=== PATIENT | female | born 1960 | race Caucasian/White ===

== ENCOUNTER 2016-01-02 08:51 | Outpatient (RCR) | payer MEDICARE ==
[~2016-01-02 08:51] MED LIST: ACET325T38 PO; ACHD5005 PO; ALDACTONE25 MG PO; AROMASIN; AROMASIN PO; ASP325T PO; ASPI-875 PO; ATR20T PO; ATRV10T PO; BIRTH CONTROL MED; CALC-80 PO; CARV12.52; CARV12.53 PO; CEFU500T PO; CHOL200025 PO; CLD600T PO; CLOP75TA PO; CRV25T PO; EXEM25TA4 PO; FRSM40T; FRSM40T PO; FURO40TA4 PO; HYDR-3583 PO; LASIX; LISI10TA2 PO; MULT-241 PO; MULT-608 PO; NITR0.3T6 SL; NTR.4SL SL; OMEP20CA12 PO; OXYC-309 PO; RECLIPSEN; RMP5C PO; SPIRONOLACTONE; TAMO20TA2 PO; VNL75CCR PO; VNL75T PO
[2016-01-02 09:02] LABS: BASOPHILS # (AUTO) 0.1 10^3/uL (0.0-0.1); BASOPHILS % (AUTO) 1 % (0-10); EOSINOPHILS # (AUTO) 0.2 10^3/uL (0.0-0.3); EOSINOPHILS % (AUTO) 4 % (0-10); LYMPHOCYTES # (AUTO) 1.6 X 10^3 (1.0-4.0); LYMPHOCYTES % (AUTO) 27 % (12-44); MEAN CORPUSCULAR HEMOGLOBIN 32 PG (25-34); MEAN CORPUSCULAR HGB CONC 34 G/DL (32-36); MEAN CORPUSCULAR VOLUME 96 FL (80-99); MEAN PLATELET VOLUME 10.6 FL (7.4-10.4); MONOCYTES # (AUTO) 0.5 X 10^3 (0.0-1.0); MONOCYTES % (AUTO) 9 % (0-12); NEUTROPHILS # (AUTO) 3.4 X 10^3 (1.8-7.8); NEUTROPHILS % (AUTO) 59 % (42-75); PLATELET COUNT 199 10^3/uL (130-400); RED BLOOD COUNT 4.02 10^6/uL (4.35-5.85); RED CELL DISTRIBUTION WIDTH 11.9 % (10.0-14.5); WHITE BLOOD COUNT 5.8 10^3/uL (4.3-11.0)
[2016-01-02 09:26] LABS: ALANINE AMINOTRANSFERASE 28 U/L (0-55); ALBUMIN 4.7 G/DL (3.2-4.5); ANION GAP 8 MMOL/L (5-14); ASPARTATE AMINO TRANSFERASE 26 U/L (5-34); BILIRUBIN,TOTAL 0.6 MG/DL (0.1-1.0); BLOOD UREA NITROGEN 23 MG/DL (7-18); BUN/CREATININE RATIO 29; CALCIUM 10.3 MG/DL (8.5-10.1); CARBON DIOXIDE 30 MMOL/L (21-32); CHLORIDE 101 MMOL/L (98-107); CREATININE SERUM 0.79 MG/DL (0.60-1.30); GFR ESTIMATED > 60; GLUCOSE 103 MG/DL (70-105); POTASSIUM 4.5 MMOL/L (3.6-5.0); SODIUM 139 MMOL/L (135-145); TOTAL PROTEIN 7.4 G/DL (6.4-8.2)
== END 2016-04-01 | disposition home or self-care (01) ==
LOC: ONC 08:51
PROVIDERS: ATTEND Internal Medicine Hematology & Oncology
DX: Z08 Encounter for follow-up examination after completed treatment for malignant neoplasm (principal); Z85.3 Personal history of malignant neoplasm of breast; Z85.830 Personal history of malignant neoplasm of bone; I42.9 Cardiomyopathy, unspecified; I25.10 Atherosclerotic heart disease of native coronary artery without angina pectoris; Z90.11 Acquired absence of right breast and nipple; Z90.710 Acquired absence of both cervix and uterus; Z98.84 Bariatric surgery status; Z92.21 Personal history of antineoplastic chemotherapy
CPT/HCPCS: 36415; 80053; 85025; 99213

== ENCOUNTER → 2016-07-24 | Outpatient (CLI) | payer MEDICARE ==
[~2016-07-24] MED LIST changes: +REGADENOSON 0.4 MG/5 ML SYR (LEXISCAN) IV ONE
[2016-07-24] MEDS: CATHETER FLUSH 10 ML SYR IV PRN ×2 (12:04→13:08)
[2016-07-24 13:06] VITALS: BP 141/68
--- NOTE | 2016-07-26 09:22 | STRESS TEST ---
DATE OF SERVICE: 07/24/2016 RESTING AND POST REGADENOSON TECHNETIUM 99M TETROFOSMIN SPECT CT IMAGING ORDERING PHYSICIAN: Dr. Gerardo. PRIMARY PHYSICIAN: Dr. Wu. CLINICAL DIAGNOSES: Coronary artery disease, nonischemic cardiomyopathy. Baseline images were carried out after injection of 10.35 mCi of technetium-99M tetrofosmin. This was followed by 0.4 mg regadenoson and 30.1 mCi of technetium-99M tetrofosmin for stress imaging. The electrocardiogram showed sinus rhythm with left bundle branch block and isolated premature ventricular contractions. The electrocardiogram did not change significantly with the regadenoson infusion. Review of images at rest and following stress indicates a somewhat patchy tracer uptake. However, there is no distinct evidence of ischemia or infarction. Gated images show global hypokinesis of the left ventricle and left ventricular ejection fraction of 35%. Left ventricular end-diastolic volume is 99 mL. CONCLUSIONS: 1. No evidence of significant myocardial ischemia or infarction on this study. 2. Global hypokinesis of the left ventricle with a calculated left ventricular ejection fraction of 35%. Job ID: [id number] DocumentID: [id number] Dictated Date: 07/25/2016 12:37:22 Technical Services Assistant Date: 07/25/2016 13:55:38 Dictated By: MELISSA GERARDO MD, MA, FACP, FACC,
== END ==
LOC: CARD 11:08
PROVIDERS: ATTEND Internal Medicine Cardiovascular Disease
DX: I25.10 Atherosclerotic heart disease of native coronary artery without angina pectoris (principal); I42.0 Dilated cardiomyopathy; E78.4 Other hyperlipidemia
CPT/HCPCS: 78452; 93017

== ENCOUNTER 2017-01-24 09:53 | Outpatient (RCR) | payer MEDICARE ==
[~2017-01-24 09:53] MED LIST changes: -REGADENOSON 0.4 MG/5 ML SYR (LEXISCAN) IV ONE
[2017-01-24 10:09] LABS: BASOPHILS # (AUTO) 0.1 10^3/uL (0.0-0.1); BASOPHILS % (AUTO) 1 % (0-10); EOSINOPHILS # (AUTO) 0.3 10^3/uL (0.0-0.3); EOSINOPHILS % (AUTO) 4 % (0-10); HEMATOCRIT 37 % (35-52); HEMOGLOBIN 12.8 G/DL (11.5-16.0); LYMPHOCYTES # (AUTO) 1.8 X 10^3 (1.0-4.0); LYMPHOCYTES % (AUTO) 26 % (12-44); MEAN CORPUSCULAR HEMOGLOBIN 33 PG (25-34); MEAN CORPUSCULAR HGB CONC 34 G/DL (32-36); MEAN CORPUSCULAR VOLUME 96 FL (80-99); MEAN PLATELET VOLUME 10.7 FL (7.4-10.4); MONOCYTES # (AUTO) 0.6 X 10^3 (0.0-1.0); MONOCYTES % (AUTO) 9 % (0-12); NEUTROPHILS # (AUTO) 4.2 X 10^3 (1.8-7.8); NEUTROPHILS % (AUTO) 60 % (42-75); PLATELET COUNT 175 10^3/uL (130-400); RED BLOOD COUNT 3.86 10^6/uL (4.35-5.85); RED CELL DISTRIBUTION WIDTH 11.7 % (10.0-14.5)
[2017-01-24 10:29] LABS: ALANINE AMINOTRANSFERASE 28 U/L (0-55); ALBUMIN 4.4 GM/DL (3.2-4.5); ALKALINE PHOSPHATASE 61 U/L (40-136); BILIRUBIN,TOTAL 0.4 MG/DL (0.1-1.0); BUN/CREATININE RATIO 41; CALCIUM 9.7 MG/DL (8.5-10.1); CARBON DIOXIDE 29 MMOL/L (21-32); CHLORIDE 98 MMOL/L (98-107); CREATININE SERUM 0.76 MG/DL (0.60-1.30); GFR ESTIMATED > 60; GLUCOSE 98 MG/DL (70-105); POTASSIUM 4.4 MMOL/L (3.6-5.0); SODIUM 136 MMOL/L (135-145); TOTAL PROTEIN 6.9 GM/DL (6.4-8.2)
[2017-04-25] MEDS ORDERED: HYDR-757 PO (19:19)
== END 2017-04-24 | disposition home or self-care (01) ==
LOC: ONC 09:53
PROVIDERS: ATTEND Internal Medicine Hematology & Oncology
DX: Z08 Encounter for follow-up examination after completed treatment for malignant neoplasm (principal); Z85.3 Personal history of malignant neoplasm of breast; Z85.830 Personal history of malignant neoplasm of bone; I42.9 Cardiomyopathy, unspecified; I25.10 Atherosclerotic heart disease of native coronary artery without angina pectoris; E04.2 Nontoxic multinodular goiter; Z90.11 Acquired absence of right breast and nipple; Z90.710 Acquired absence of both cervix and uterus; Z98.84 Bariatric surgery status; Z92.21 Personal history of antineoplastic chemotherapy; Z79.82 Long term (current) use of aspirin; Z79.899 Other long term (current) drug therapy
CPT/HCPCS: 36415; 80053; 85025; 99213

== ENCOUNTER → 2017-01-25 | Outpatient (CLI) | payer MEDICARE ==
--- NOTE | 2017-01-25 12:28 | Diagnostic Imaging Report ---
PROCEDURE: US Thyroid. TECHNIQUE: Multiple real-time grayscale images were obtained of the thyroid in various projections. INDICATION: Followup of thyroid nodule. COMPARISON: 01/31/2016. FINDINGS: The right lobe measures 5.6 x 2.2 x 1.9 cm. There is a solid heterogeneous nodule in the midportion measuring 1.7 x 1.0 x 1.3 cm. There is a second solid heterogeneous nodule in the inferior lobe measuring 1.4 x 1 x 1.3 cm. The left lobe measures 4.4 x 1.0 x 1.4 cm. The largest nodule is in the midportion measuring 7 x 4 x 6 mm. Smaller nodule inferiorly is not demonstrated today. There is normal blood flow bilaterally. IMPRESSION: Multinodular thyroid with the largest dominant nodule midportion right lobe stable. The next largest nodule in the inferior portion of the right lobe has increased slightly in size from previous exam. Dictated by: Dictated on workstation # [id number]
== END ==
LOC: RAD 10:40
PROVIDERS: ATTEND Otolaryngology Otolaryngology/Facial Plastic Surgery
DX: E04.2 Nontoxic multinodular goiter (principal)
CPT/HCPCS: 76536

== ENCOUNTER → 2017-01-30 | Outpatient (CLI) | payer MEDICARE | LOC: CARD 09:14 | PROVIDERS: ATTEND Internal Medicine Cardiovascular Disease | DX: I25.10 Atherosclerotic heart disease of native coronary artery without angina pectoris (principal); I50.32 Chronic diastolic (congestive) heart failure; I42.0 Dilated cardiomyopathy; I25.5 Ischemic cardiomyopathy; E78.4 Other hyperlipidemia | CPT/HCPCS: 93306 ==

== ENCOUNTER 2017-04-25 17:53 | Emergency (ER) | payer MEDICARE ==
[~2017-04-25] VITALS: Ht 162.6 cm; Wt 78.5 kg
--- OUTSIDE RECORDS SUMMARY | 2017-04-25 17:59 | XMS REPORT | Continuity of Care Document ---
Author Author [facility] Organization [facility] Address Unknown Phone Unavailable Allergies Active Description Code Type Severity Reaction Onset Reported/Identified Relationship to Patient Clinical Status Yes No Known Drug Allergies [id number] Drug Allergy Unknown N/A 02/28/2007 Yes adhesive [id number] Drug Allergy Moderate RASH 05/27/2014 Medications There is no data. Problems Date Dx Coded Attending Type Code Diagnosis Diagnosed By 10/20/2008 Ot 272.4 10/20/2008 Ot 396.3 10/20/2008 Ot 401.9 10/20/2008 Ot 410.71 10/20/2008 Ot 413.9 10/20/2008 Ot 414.01 10/20/2008 Ot 425.9 10/20/2008 Ot 426.3 10/20/2008 Ot 428.0 10/20/2008 Ot 428.22 10/20/2008 Ot 909.2 10/20/2008 Ot E879.2 10/20/2008 Ot V10.81 10/20/2008 Ot V45.02 10/20/2008 Ot V87.41 09/06/2009 Ot 174.9 09/24/2009 Ot 174.9 09/24/2009 Ot 272.4 09/24/2009 Ot 396.3 09/24/2009 Ot 412 09/24/2009 Ot 425.4 09/24/2009 Ot 428.22 09/24/2009 Ot V10.81 09/24/2009 Ot V45.02 09/24/2009 Ot V45.82 11/14/2009 Ot 174.9 11/14/2009 Ot V45.71 11/14/2009 Ot V57.21 12/15/2009 Ot 174.9 12/15/2009 Ot 493.90 12/15/2009 Ot 621.8 12/15/2009 Ot V12.59 12/15/2009 Ot V45.02 12/15/2009 Ot V45.71 12/15/2009 Ot V86.0 01/31/2010 Ot 174.9 01/31/2010 Ot 414.00 01/31/2010 Ot 425.4 01/31/2010 Ot 733.90 01/31/2010 Ot V10.81 01/31/2010 Ot V15.3 01/31/2010 Ot V45.71 01/31/2010 Ot V58.69 01/31/2010 Ot V86.0 01/31/2010 Ot V87.41 05/03/2010 Ot 174.9 MALIGN NEOPL BREAST NOS 05/03/2010 Ot 414.00 CORON ATHEROSCLER NOS TYPE VESSEL, NATIV 05/03/2010 Ot 425.4 PRIM CARDIOMYOPATHY NEC 05/03/2010 Ot 733.90 BONE CARTILAGE DIS NOS 05/03/2010 Ot V10.81 HX OF BONE MALIGNANCY 05/03/2010 Ot V15.3 HX OF IRRADIATION 05/03/2010 Ot V45.71 ACQUIRED ABSENCE OF BREAST AND NIPPLE 05/03/2010 Ot V58.69 OTH MED,LT, CURRENT USE 05/03/2010 Ot V86.0 ESTROGEN RECEPTOR POSITIVE STATUS [ER+] 05/03/2010 Ot V87.41 PERSONAL HISTORY OF ANTINEOPLASTIC CHEMO 07/18/2010 Ot 272.4 HYPERLIPIDEMIA NEC/NOS 07/18/2010 Ot 412 OLD MYOCARDIAL INFARCT 07/18/2010 Ot 414.01 CORONARY ATHEROSCLEROSIS OF [place] CORON 07/18/2010 Ot 425.4 PRIM CARDIOMYOPATHY NEC 07/18/2010 Ot 789.06 ABDOMINAL PAIN, EPIGASTRIC 07/18/2010 Ot V10.81 HX OF BONE MALIGNANCY 07/18/2010 Ot V45.02 AUTO IMPLANTABLE CARDIAC DEFIBRILLATOR I 07/18/2010 Ot V45.82 PERCUTANEOUS TRANSLUM CORON ANGIOPLASTY 07/18/2010 Ot V58.63 LONG-TERM( CURRENT)USE OF ANTIPLATELET/AN 07/18/2010 Ot V58.66 LONG-TERM ( CURRENT) USE OF ASPIRIN 07/18/2010 Ot V58.69 OTH MED,LT, CURRENT USE 01/19/2014 Ot 786.50 01/19/2014 Ot V45.02 01/19/2014 Ot 786.50 01/19/2014 Ot V76.12 01/19/2014 Ot 413.9 01/19/2014 Ot 414.01 01/19/2014 Ot 425.4 01/19/2014 Ot V58.66 01/19/2014 Ot V58.69 01/19/2014 Ot V72.81 01/19/2014 Ot V72.83 01/19/2014 Ot V74.8 01/19/2014 Ot 611.72 01/19/2014 Ot 611.72 01/19/2014 Ot V72.63 01/19/2014 Ot V72.81 01/19/2014 Ot V74.8 01/19/2014 Ot 174.9 01/19/2014 Ot 272.4 01/19/2014 Ot 401.9 01/19/2014 Ot 412 01/19/2014 Ot 414.00 01/19/2014 Ot 425.4 01/19/2014 Ot V10.81 01/19/2014 Ot V15.3 01/19/2014 Ot V16.0 01/19/2014 Ot V16.3 01/19/2014 Ot V16.41 01/19/2014 Ot V16.42 01/19/2014 Ot V45.02 01/19/2014 Ot V45.82 01/19/2014 Ot V58.63 01/19/2014 Ot V58.66 01/19/2014 Ot V58.69 01/19/2014 Ot V87.41 01/19/2014 Ot 174.9 01/19/2014 Ot 174.9 01/19/2014 Ot V72.63 01/19/2014 Ot V74.8 01/19/2014 Ot 786.2 01/19/2014 Ot 174.9 01/19/2014 Ot 414.00 01/19/2014 Ot 425.4 01/19/2014 Ot V10.81 01/19/2014 Ot V15.3 01/19/2014 Ot V45.71 01/19/2014 Ot V58.63 01/19/2014 Ot V58.66 01/19/2014 Ot V58.69 01/19/2014 Ot V87.41 01/19/2014 Ot 627.2 01/19/2014 Ot 174.9 01/19/2014 Ot V72.63 01/19/2014 Ot V74.8 01/19/2014 Ot V49.81 01/19/2014 Ot V82.81 01/19/2014 Ot 174.9 01/19/2014 Ot 414.00 01/19/2014 Ot 425.4 01/19/2014 Ot 733.90 01/19/2014 Ot V10.81 01/19/2014 Ot V15.3 01/19/2014 Ot V45.71 01/19/2014 Ot V58.69 01/19/2014 Ot V86.0 01/19/2014 Ot V87.41 01/19/2014 Ot 272.4 01/19/2014 Ot 413.9 01/19/2014 Ot 414.00 01/19/2014 Ot 425.4 01/19/2014 Ot 780.79 01/19/2014 Ot 786.05 01/19/2014 Ot V45.71 01/19/2014 Ot V58.63 01/19/2014 Ot V58.66 01/19/2014 Ot V58.69 01/19/2014 Ot V72.63 01/19/2014 Ot V72.81 01/19/2014 KASHIF WALKER N Ot 174.9 01/19/2014 KASHIF WALKER N Ot V07.4 01/19/2014 KASHIF WALKER N Ot V49.81 01/19/2014 KASHIF WALKER N Ot V82.81 01/19/2014 IRINA STINSON FACC, ALI FACP CCDS Ot 272.4 01/19/2014 IRINA STINSON FACC, ALI FACP CCDS Ot 278.00 01/19/2014 IRINA STINSON FACC, ALI FACP CCDS Ot 414.00 01/19/2014 IRINA STINSON FACC, ALI FACP CCDS Ot 425.4 01/19/2014 IRINA STINSON FACC, ALI FACP CCDS Ot 428.0 01/19/2014 BEATRICE KIM PASTE UP COPY CAMERA OPERATOR Ot 174.9 01/19/2014 BEATRICE KIM PASTE UP COPY CAMERA OPERATOR Ot 414.00 01/19/2014 BEATRICE KIM PASTE UP COPY CAMERA OPERATOR Ot 425.4 01/19/2014 BEATRICE KIM PASTE UP COPY CAMERA OPERATOR Ot V10.81 01/19/2014 BEATRICE KIM PASTE UP COPY CAMERA OPERATOR Ot V15.3 01/19/2014 BEATRICE KIM PASTE UP COPY CAMERA OPERATOR Ot V45.71 01/19/2014 BEATRICE KIM PASTE UP COPY CAMERA OPERATOR Ot V58.69 01/19/2014 BEATRICE KIM PASTE UP COPY CAMERA OPERATOR Ot V86.0 01/19/2014 BEATRICE KIM PASTE UP COPY CAMERA OPERATOR Ot V87.41 01/19/2014 BEATRICE KIM PASTE UP COPY CAMERA OPERATOR Ot V88.01 01/19/2014 BERNY STINSON, GILBERTO P Ot 241.0 01/19/2014 BERNY STINSON, GILBERTO P Ot 241.0 01/19/2014 BERNY STINSON, GILBERTO P Ot 241.1 01/19/2014 KIMBEATRICE Mena PASTE UP COPY CAMERA OPERATOR Ot 174.9 01/19/2014 JUDYBEATRICE S PASTE UP COPY CAMERA OPERATOR Ot 414.00 01/19/2014 JUDY BEATRICE S PASTE UP COPY CAMERA OPERATOR Ot 425.4 01/19/2014 JUDY BEATRICE S PASTE UP COPY CAMERA OPERATOR Ot 625.0 01/19/2014 JUDY BEATRICE S PASTE UP COPY CAMERA OPERATOR Ot V10.81 01/19/2014 JUDY BEATRICE S PASTE UP COPY CAMERA OPERATOR Ot V15.3 01/19/2014 JUDY BEATRICE S PASTE UP COPY CAMERA OPERATOR Ot V45.71 01/19/2014 JUDY BEATRICE S PASTE UP COPY CAMERA OPERATOR Ot V58.69 01/19/2014 JUDY BEATRICE S PASTE UP COPY CAMERA OPERATOR Ot V86.0 01/19/2014 JUDY BEATRICE S PASTE UP COPY CAMERA OPERATOR Ot V87.41 01/19/2014 JUDY BEATRICE S PASTE UP COPY CAMERA OPERATOR Ot V88.01 01/19/2014 MELISSA AREVALO MD, FACCP CCDS Ot 272.4 HYPERLIPIDEMIA NEC/NOS 01/19/2014 MELISSA AREVALO MD, FACC FACP CCDS Ot 413.9 ANGINA PECTORIS NEC/NOS 01/19/2014 IRINA STINSON FACC, MELISSA FACP CCDS Ot 414.01 CORONARY ATHEROSCLEROSIS OF [place] CORON 01/19/2014 MELISSA AREVALO MD, FACCP CCDS Ot 425.4 PRIM CARDIOMYOPATHY NEC 01/19/2014 MELISSA AREVALO MD, FACC FACP CCDS Ot 780.79 OTH MALAISE FATIGUE 01/19/2014 MELISSA AREVALO MD, FACC FACP CCDS Ot V45.82 PERCUTANEOUS TRANSLUM CORON ANGIOPLASTY 01/19/2014 MELISSA AREVALO MD, FACC FACP CCDS Ot V58.63 LONG-TERM(CURRENT)USE OF ANTIPLATELET/AN 01/19/2014 MELISSA AREVALO MD, FACC FACP CCDS Ot V58.66 LONG-TERM (CURRENT) USE OF ASPIRIN 01/19/2014 MELISSA AREVALO MD, FACCP CCDS Ot V58.69 OTH MED,LT,CURRENT USE 01/19/2014 MELISSA AREVALO MD, FACC FACP CCDS Ot V87.41 PERSONAL HISTORY OF ANTINEOPLASTIC CHEMO 03/03/2014 BEATRICE KIM PASTE UP COPY CAMERA OPERATOR Ot 174.9 03/03/2014 BEATRICE KIM PASTE UP COPY CAMERA OPERATOR Ot 414.00 03/03/2014 BEATRICE KIM S PASTE UP COPY CAMERA OPERATOR Ot 425.4 03/03/2014 BEATRICE KIM S PASTE UP COPY CAMERA OPERATOR Ot 625.0 03/03/2014 BEATRICE KIM PASTE UP COPY CAMERA OPERATOR Ot V10.81 03/03/2014 KIMBEATRICE Mena S PASTE UP COPY CAMERA OPERATOR Ot V15.3 03/03/2014 BEATRICE KIM S PASTE UP COPY CAMERA OPERATOR Ot V45.71 03/03/2014 BEATRICE KIM PASTE UP COPY CAMERA OPERATOR Ot V58.69 03/03/2014 BEATRICE KIM PASTE UP COPY CAMERA OPERATOR Ot V86.0 03/03/2014 BEATRICE KIM S PASTE UP COPY CAMERA OPERATOR Ot V87.41 03/03/2014 BEATRICE KIM S PASTE UP COPY CAMERA OPERATOR Ot V88.01 03/04/2014 ROHITH STINSON, KELLY Ma Ot 174.9 03/04/2014 ROHITH STINSON, KELLY Ma Ot V58.69 03/22/2014 BEATRICE KIM PASTE UP COPY CAMERA OPERATOR Ot 174.9 03/22/2014 BEATRICE KIM PASTE UP COPY CAMERA OPERATOR Ot 414.00 03/22/2014 BEATRICE KIM PASTE UP COPY CAMERA OPERATOR Ot 425.4 03/22/2014 BEATRICE KIM S PASTE UP COPY CAMERA OPERATOR Ot 625.0 03/22/2014 BEATRICE KIM PASTE UP COPY CAMERA OPERATOR Ot V10.81 03/22/2014 BEATRICE KIM PASTE UP COPY CAMERA OPERATOR Ot V15.3 03/22/2014 BEATRICE KIM PASTE UP COPY CAMERA OPERATOR Ot V45.71 03/22/2014 KIMBEATRICE Mena S PASTE UP COPY CAMERA OPERATOR Ot V58.69 03/22/2014 BEATRICE KIM PASTE UP COPY CAMERA OPERATOR Ot V86.0 03/22/2014 KIMBEATRICE Mena S PASTE UP COPY CAMERA OPERATOR Ot V87.41 03/22/2014 KIMBEATRICE Mena S PASTE UP COPY CAMERA OPERATOR Ot V88.01 05/21/2014 Ot 530.81 05/28/2014 CAREN STINSON, LIZZIE Ot 250.00 05/28/2014 CAREN STINSON, LIZZIE Ot 272.4 05/28/2014 CAREN STINSON, LIZZIE Ot 278.01 05/28/2014 CAREN STINSON, LIZZIE Ot 401.9 05/28/2014 CAREN STINSON, LIZZIE Ot 412 05/28/2014 CAREN STINSON, LIZZIE Ot 530.11 05/28/2014 CAREN STINSON, LIZZIE Ot V85.36 05/28/2014 CAREN STINSON, LIZZIE Ot 250.00 05/28/2014 CAREN STINSON, LIZZIE Ot 272.4 05/28/2014 CAREN STINSON, SHARMILAKI Ot 278.01 05/28/2014 CAREN STINSON, GERSONAAKI Ot 401.9 05/28/2014 CAREN STINSON, SHARMILAKI Ot 412 05/28/2014 CAREN STINSON, LIZZIE Ot 530.11 05/28/2014 CAREN STINSON, LIZZIE Ot V85.36 05/28/2014 Ot 530.81 05/28/2014 CAREN STINSON, LIZZIE Ot 250.00 DIAB MARK WO COMPL, TYPE II OR UNSPEC TY 05/28/2014 CAREN STINSON, LIZZIE Ot 272.4 HYPERLIPIDEMIA NEC/NOS 05/28/2014 CAREN STINSON, LIZZIE Ot 278.01 MORBID OBESITY 05/28/2014 CAERN STINSON, LIZZIE Ot 401.9 HYPERTENSION NOS 05/28/2014 CAREN STINSON, LIZZIE Ot 412 05/28/2014 CAREN STINSON, LIZZIE Ot 414.01 CORONARY ATHEROSCLEROSIS OF [place] CORON 05/28/2014 CAREN STINSON, LIZZIE Ot 530.11 REFLUX ESOPHAGITIS 05/28/2014 CAREN STINSON, LIZZIE Ot V45.02 AUTO IMPLANTABLE CARDIAC DEFIBRILLATOR I 05/28/2014 CAREN STINSON, LIZZIE Ot V45.82 PERCUTANEOUS TRANSLUM CORON ANGIOPLASTY 05/28/2014 CAREN STINSON, LIZZIE Ot V85.36 BODY MASS INDEX 36.0-36.9, ADULT 05/31/2014 CAREN STINSON, LIZZIE Ot 250.00 05/31/2014 CAREN STINSON, LIZZIE Ot 272.4 05/31/2014 CAREN STINSON, LIZZIE Ot 278.01 05/31/2014 CAREN STINSON, LIZZIE Ot 401.9 05/31/2014 CAREN STINSON, LIZZIE Ot 414.01 05/31/2014 CAREN STINSON, LIZZIE Ot 530.11 05/31/2014 CAREN STINSON, LIZZIE Ot V45.02 05/31/2014 CAREN STINSON, TAKAAKI Ot V45.82 05/31/2014 CAREN STINSON, TAKAAKI Ot V85.36 05/31/2014 CAREN STINSON, TAKAAKI Ot 250.00 05/31/2014 CAREN STINSON, TAKAAKI Ot 272.4 05/31/2014 CAREN STINSON, TAKAAKI Ot 278.01 05/31/2014 CAREN STINSON, TAKAAKI Ot 401.9 05/31/2014 CAREN STINSON, TAKAAKI Ot 414.01 05/31/2014 CAREN STINSON, TAKAAKI Ot 530.11 05/31/2014 CAREN STINSON, TAKAAKI Ot V45.02 05/31/2014 CAREN STINSON, TAKAAKI Ot V45.82 05/31/2014 CAREN STINSON, TAKAAKI Ot V85.36 06/08/2014 CAREN STINSON, TAKAAKI Ot 250.00 06/08/2014 CAREN STINSON, TAKAAKI Ot 272.4 06/08/2014 CAREN STINSON, TAKAAKI Ot 278.01 06/08/2014 CAREN STINSON, TAKAAKI Ot 401.9 06/08/2014 CAREN STINSON, TAKAAKI Ot 414.01 06/08/2014 CAREN STINSON, TAKAAKI Ot 530.11 06/08/2014 CAREN STINSON, TAKAAKI Ot V45.02 06/08/2014 CAREN STINSON, TAKAAKI Ot V45.82 06/08/2014 CAREN STINSON, TAKAAKI Ot V85.36 06/21/2014 CAREN STINSON, TAKAAKI Ot 278.01 06/21/2014 CAREN STINSON, TAKAAKI Ot V72.63 06/21/2014 CAREN STINSON, TAKAAKI Ot V72.83 06/21/2014 CAREN STINSON, TAKAAKI Ot V74.8 07/16/2014 CAREN STINSON, TAKAAKI Ot 278.01 07/16/2014 CAREN STINSON, TAKAAKI Ot V72.63 07/16/2014 CAREN STINSON, TAKAAKI Ot V72.83 07/16/2014 CAREN STINSON, TAKAAKI Ot V74.8 07/24/2014 NITIN MICHAEL SPIRITUAL COUNSELOR Ot 241.1 08/04/2014 BEATRICE KIM PASTE UP COPY CAMERA OPERATOR Ot 174.9 08/04/2014 BEATRICE KIM PASTE UP COPY CAMERA OPERATOR Ot 241.1 08/04/2014 KIM, [facility] S PASTE UP COPY CAMERA OPERATOR Ot 250.00 08/04/2014 KIM, [facility] S PASTE UP COPY CAMERA OPERATOR Ot 272.4 08/04/[address] [facility] S PASTE UP COPY CAMERA OPERATOR Ot 401.9 08/04/[address] [facility] S PASTE UP COPY CAMERA OPERATOR Ot 414.01 08/04/[address] [facility] S PASTE UP COPY CAMERA OPERATOR Ot 425.4 08/04/[address] [facility] S PASTE UP COPY CAMERA OPERATOR Ot V10.81 08/04/[address] [facility] S PASTE UP COPY CAMERA OPERATOR Ot V15.3 08/04/2014 KIM, [facility] S PASTE UP COPY CAMERA OPERATOR Ot V45.02 08/04/[address] [facility] S PASTE UP COPY CAMERA OPERATOR Ot V45.71 08/04/[address] [facility] S PASTE UP COPY CAMERA OPERATOR Ot V45.82 08/04/[address] [facility] S PASTE UP COPY CAMERA OPERATOR Ot V58.69 08/04/2014 KIM, [facility] S PASTE UP COPY CAMERA OPERATOR Ot V86.0 08/04/[address] [facility] S PASTE UP COPY CAMERA OPERATOR Ot V87.41 08/04/[address] [facility] S PASTE UP COPY CAMERA OPERATOR Ot V88.01 08/04/2014 KIM, [facility] S PASTE UP COPY CAMERA OPERATOR Ot 174.9 08/04/2014 KIM, [facility] S PASTE UP COPY CAMERA OPERATOR Ot 241.1 08/04/2014 KIM, [facility] S PASTE UP COPY CAMERA OPERATOR Ot 250.00 08/04/[address] [facility] S PASTE UP COPY CAMERA OPERATOR Ot 272.4 08/04/2014 KIM, [facility] S PASTE UP COPY CAMERA OPERATOR Ot 401.9 08/04/2014 KIM, [facility] S PASTE UP COPY CAMERA OPERATOR Ot 414.01 08/04/2014 KIM, [facility] S PASTE UP COPY CAMERA OPERATOR Ot 425.4 08/04/[address] [facility] S PASTE UP COPY CAMERA OPERATOR Ot V10.81 08/04/[address] [facility] S PASTE UP COPY CAMERA OPERATOR Ot V15.3 08/04/2014 KIM, [facility] S PASTE UP COPY CAMERA OPERATOR Ot V45.02 08/04/[address] [facility] S PASTE UP COPY CAMERA OPERATOR Ot V45.71 08/04/[address] [facility] S PASTE UP COPY CAMERA OPERATOR Ot V45.82 08/04/2014 KIM, [facility] S PASTE UP COPY CAMERA OPERATOR Ot V58.69 08/04/2014 KIM, [facility] S PASTE UP COPY CAMERA OPERATOR Ot V86.0 08/04/2014 KIMBEATRICE Mena S PASTE UP COPY CAMERA OPERATOR Ot V87.41 08/04/2014 KIMBEATRICE Mena S PASTE UP COPY CAMERA OPERATOR Ot V88.01 08/13/2014 NITIN MICHAEL SPIRITUAL COUNSELOR Ot 241.1 08/18/2014 KIMBEATRICE Mena S PASTE UP COPY CAMERA OPERATOR Ot 174.9 08/18/2014 KIM, HIL S PASTE UP COPY CAMERA OPERATOR Ot 414.00 08/18/2014 KIMMARI S PASTE UP COPY CAMERA OPERATOR Ot 425.4 08/18/2014 KIM, HIL S PASTE UP COPY CAMERA OPERATOR Ot V10.81 08/18/2014 KIM, HIL S PASTE UP COPY CAMERA OPERATOR Ot V15.3 08/18/2014 KIMMARI S PASTE UP COPY CAMERA OPERATOR Ot V45.71 08/18/2014 KIMMARI S PASTE UP COPY CAMERA OPERATOR Ot V58.69 08/18/2014 KIM, HIL S PASTE UP COPY CAMERA OPERATOR Ot V86.0 08/18/2014 KIMBEATRICE S PASTE UP COPY CAMERA OPERATOR Ot V87.41 08/18/2014 KIMMARI S PASTE UP COPY CAMERA OPERATOR Ot V88.01 08/20/2014 KIM, HIL S PASTE UP COPY CAMERA OPERATOR Ot 174.9 08/20/2014 KIM, [facility] S PASTE UP COPY CAMERA OPERATOR Ot 414.00 08/20/2014 KIM, HIL S PASTE UP COPY CAMERA OPERATOR Ot 425.4 08/20/2014 KIM, HIL S PASTE UP COPY CAMERA OPERATOR Ot V10.81 08/20/2014 KIM, HIL S PASTE UP COPY CAMERA OPERATOR Ot V15.3 08/20/2014 KIM, HIL S PASTE UP COPY CAMERA OPERATOR Ot V45.71 08/20/2014 KIM, HIL S PASTE UP COPY CAMERA OPERATOR Ot V58.69 08/20/2014 KIM, [facility] S PASTE UP COPY CAMERA OPERATOR Ot V86.0 08/20/2014 KIM, [facility] S PASTE UP COPY CAMERA OPERATOR Ot V87.41 08/20/2014 KIM, [facility] S PASTE UP COPY CAMERA OPERATOR Ot V88.01 08/26/2014 KIM, [facility] S PASTE UP COPY CAMERA OPERATOR Ot 174.9 08/26/2014 KIMMARI S PASTE UP COPY CAMERA OPERATOR Ot 241.1 08/26/2014 KIMMARI S PASTE UP COPY CAMERA OPERATOR Ot 250.00 08/26/2014 KIMMARI S PASTE UP COPY CAMERA OPERATOR Ot 272.4 08/26/2014 KIM, MARI S PASTE UP COPY CAMERA OPERATOR Ot 401.9 08/26/2014 KIM, HILAH S PASTE UP COPY CAMERA OPERATOR Ot 414.01 08/26/2014 KIMBEATRICE Mena PASTE UP COPY CAMERA OPERATOR Ot 425.4 08/26/2014 KIMBEATRICE Mena PASTE UP COPY CAMERA OPERATOR Ot V10.81 08/26/2014 KIMBEATRICE Mena PASTE UP COPY CAMERA OPERATOR Ot V15.3 08/26/2014 KIMBEATRICE PASTE UP COPY CAMERA OPERATOR Ot V45.02 08/26/2014 KIMBEATRICE PASTE UP COPY CAMERA OPERATOR Ot V45.71 08/26/2014 KIMBEATRICE PASTE UP COPY CAMERA OPERATOR Ot V45.82 08/26/2014 KIMBEATRICE PASTE UP COPY CAMERA OPERATOR Ot V58.69 08/26/2014 KIMBEATRICE PASTE UP COPY CAMERA OPERATOR Ot V86.0 08/26/2014 KIMBEATRICE PASTE UP COPY CAMERA OPERATOR Ot V87.41 08/26/2014 KIMBEATRICE Mena PASTE UP COPY CAMERA OPERATOR Ot V88.01 10/05/2014 IRINA STINSON FAC, MELISSA RAPPP CCDS Ot 425.4 PRIM CARDIOMYOPATHY NEC 10/05/2014 IRINA STINSON FACC, MELISSA FACP CCDS Ot V53.32 FITTING ADJUST AUTOMAT IMPLANT CARDIAC 10/05/2014 IRINA STINSON FAC, MELISSA FACP CCDS Ot V58.69 OT MED,LT,CURRENT USE 03/23/2015 DENISE, KASHIF N Ot I25.10 03/23/2015 DENISE, KASHIF N Ot I42.9 03/23/2015 DENISE, KASHIF N Ot Z08 03/23/2015 DENISE, KASHIF N Ot Z85.3 03/23/2015 DENISE, BOBAN N Ot Z85.830 03/23/2015 DENISE, BOBAN N Ot Z90.11 03/23/2015 DENISE, BOBAN N Ot Z90.710 03/23/2015 DENISE, BOBAN N Ot Z92.21 03/23/2015 DENISE, BOBAN N Ot Z98.84 03/24/2015 DENISE, BOBAN N Ot I25.10 03/24/2015 DENISE, BOBAN N Ot I42.9 03/24/2015 DENISE, BOBAN N Ot Z08 03/24/2015 DENISE, BOBAN N Ot Z85.3 03/24/2015 DENISE, BOBAN N Ot Z85.830 03/24/2015 DENISE, BOBAN N Ot Z90.11 03/24/2015 KASHIF WALKER Ot Z90.710 03/24/2015 KASHIF WALKER Ot Z92.21 03/24/2015 KASHIF WALKER Ot Z98.84 04/27/2015 KASHIF WALKER Ot I25.10 ATHSCL HEART DISEASE OF [place] CORONARY 04/27/2015 KASHIF WALKER Ot I42.9 CARDIOMYOPATHY, UNSPECIFIED 04/27/2015 KASHIF WALKER Ot Z08 ENCNTR FOR FOLLOW-UP EXAM AFTER TRTMT FO 04/27/2015 KASHIF WALKER Ot Z85.3 PERSONAL HISTORY OF MALIGNANT NEOPLASM O 04/27/2015 KASHIF WALKER Ot Z85.830 PERSONAL HISTORY OF MALIGNANT NEOPLASM O 04/27/2015 KASHIF WALKER Ot Z90.11 ACQUIRED ABSENCE OF RIGHT BREAST AND NIP 04/27/2015 KASHIF WALKER Ot Z90.710 ACQUIRED ABSENCE OF BOTH CERVIX AND UTER 04/27/2015 KASHIF WALKER Ot Z92.21 PERSONAL HISTORY OF ANTINEOPLASTIC CHEMO 04/27/2015 KASHIF WALKER Ot Z98.84 BARIATRIC SURGERY STATUS 08/03/2015 Ot 174.9 MALIGN NEOPL BREAST NOS 08/03/2015 Ot 414.00 CORON ATHEROSCLER NOS TYPE VESSEL, NATIV 08/03/2015 Ot 425.4 PRIM CARDIOMYOPATHY NEC 08/03/2015 Ot 733.90 BONE CARTILAGE DIS NOS 08/03/2015 Ot V10.81 HX OF BONE MALIGNANCY 08/03/2015 Ot V15.3 HX OF IRRADIATION 08/03/2015 Ot V45.71 ACQUIRED ABSENCE OF BREAST AND NIPPLE 08/03/2015 Ot V58.69 OTH MED,LT, CURRENT USE 08/03/2015 Ot V86.0 ESTROGEN RECEPTOR POSITIVE STATUS [ER+] 08/03/2015 Ot V87.41 PERSONAL HISTORY OF ANTINEOPLASTIC CHEMO 08/03/2015 Ot 272.4 HYPERLIPIDEMIA NEC/NOS 08/03/2015 Ot 413.9 ANGINA PECTORIS NEC/NOS 08/03/2015 Ot 414.00 CORON ATHEROSCLER NOS TYPE VESSEL, NATIV 08/03/2015 Ot 425.4 PRIM CARDIOMYOPATHY NEC 08/03/2015 Ot 780.79 OTH MALAISE FATIGUE 08/03/2015 Ot 786.05 SHORTNESS OF BREATH 08/03/2015 Ot V45.71 ACQUIRED ABSENCE OF BREAST AND NIPPLE 08/03/2015 Ot V58.63 LONG-TERM( CURRENT)USE OF ANTIPLATELET/AN 08/03/2015 Ot V58.66 LONG-TERM ( CURRENT) USE OF ASPIRIN 08/03/2015 Ot V58.69 OTH MED,LT, CURRENT USE 08/03/2015 Ot V72.63 PRE- PROCEDURAL LABORATORY EXAMINATION 08/03/2015 Ot V72.81 EXAM-PRE- OPERATIVE CARDIOVASCULAR 08/03/2015 KASHIF WALKER Ot 174.9 MALIGN NEOPL BREAST NOS 08/03/2015 KASHIF WALKER Ot V07.4 HORMONE REPLACEMENT THERAPY (POSTMENOPAU 08/03/2015 KASHIF WALKER Ot V49.81 ASYMPT POSTMENOPAUSAL STATUS (AGE-RELATE 08/03/2015 KASHIF WALKER Ot V82.81 SCREENING FOR OSTEOPOROSIS 08/03/2015 IRINA STINSON FACC, MELISSA FACP CCDS Ot 272.4 HYPERLIPIDEMIA NEC/NOS 08/03/2015 IRINA STINSON FACC, ALI FACP CCDS Ot 278.00 OBESITY, NOS 08/03/2015 IRINA STINSNO FACC, ALI FACP CCDS Ot 414.00 CORON ATHEROSCLER NOS TYPE VESSEL, NATIV 08/03/2015 IRINA STINSON FACC, ALI FACP CCDS Ot 425.4 PRIM CARDIOMYOPATHY NEC 08/03/2015 IRINA STINSON FACC, ALI FACP CCDS Ot 428.0 CONGESTIVE HEART FAILURE NOS 08/03/2015 BEATRICE KIM PASTE UP COPY CAMERA OPERATOR Ot 174.9 MALIGN NEOPL BREAST NOS 08/03/2015 BEATRICE KIM PASTE UP COPY CAMERA OPERATOR Ot 414.00 CORON ATHEROSCLER NOS TYPE VESSEL, NATIV 08/03/2015 BEATRICE KIM PASTE UP COPY CAMERA OPERATOR Ot 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.4 PRIM CARDIOMYOPATHY NEC 08/03/2015 BEATRICE KIM PASTE UP COPY CAMERA OPERATOR Ot V10.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 BONE MALIGNANCY 08/03/2015 BEATRICE KIM PASTE UP COPY CAMERA OPERATOR Ot V15.3 HX OF IRRADIATION 08/03/2015 BEATRICE KIM PASTE UP COPY CAMERA OPERATOR Ot V45.71 ACQUIRED ABSENCE OF BREAST AND NIPPLE 08/03/2015 BEATRICE KIMP Ot V58.69 OTH MED,LT,CURRENT USE 08/03/2015 BEATRICE KIM PASTE UP COPY CAMERA OPERATOR Ot V86.0 ESTROGEN RECEPTOR POSITIVE STATUS [ER+] 08/03/2015 BEATRICE KIM PASTE UP COPY CAMERA OPERATOR Ot V87.41 PERSONAL HISTORY OF ANTINEOPLASTIC CHEMO 08/03/2015 BEATRICE KIM PASTE UP COPY CAMERA OPERATOR Ot V88.01 ACQUIRED ABSENCE OF BOTH CERVIX AND UTER 08/03/2015 BERNY STINSON, GILBERTO Maciel Ot 241.0 NONTOX UNINODULAR GOITER 08/03/2015 GILBERTO ARRIETA MD Ot 241.0 NONTOX UNINODULAR GOITER 08/03/2015 GILBERTO ARRIETA MD Ot 241.1 NONTOX MULTINODUL GOITER 08/03/2015 BEATRICE KIM PASTE UP COPY CAMERA OPERATOR Ot 174.9 MALIGN NEOPL BREAST NOS 08/03/2015 BEATRICE KIM PASTE UP COPY CAMERA OPERATOR Ot 414.00 CORON ATHEROSCLER NOS TYPE VESSEL, NATIV 08/03/2015 BEATRICE KIM PASTE UP COPY CAMERA OPERATOR Ot 425.4 PRIM CARDIOMYOPATHY NEC 08/03/2015 BEATRICE KIM PASTE UP COPY CAMERA OPERATOR Ot 625.0 DYSPAREUNIA 08/03/2015 BEATRICE KIM PASTE UP COPY CAMERA OPERATOR Ot V10.81 HX OF BONE MALIGNANCY 08/03/2015 BEATRICE KIM PASTE UP COPY CAMERA OPERATOR Ot V15.3 HX OF IRRADIATION 08/03/2015 BEATRICE KIM PASTE UP COPY CAMERA OPERATOR Ot V45.71 ACQUIRED ABSENCE OF BREAST AND NIPPLE 08/03/2015 BEATRICE KIM PASTE UP COPY CAMERA OPERATOR Ot V58.69 OTH MED,LT,CURRENT USE 08/03/2015 BEATRICE KIM PASTE UP COPY CAMERA OPERATOR Ot V86.0 ESTROGEN RECEPTOR POSITIVE STATUS [ER+] 08/03/2015 BEATRICE KIM PASTE UP COPY CAMERA OPERATOR Ot V87.41 PERSONAL HISTORY OF ANTINEOPLASTIC CHEMO 08/03/2015 BEATRICE KIM PASTE UP COPY CAMERA OPERATOR Ot V88.01 ACQUIRED ABSENCE OF BOTH CERVIX AND UTER 08/03/2015 BEATRICE KIM PASTE UP COPY CAMERA OPERATOR Ot 174.9 MALIGN NEOPL BREAST NOS 08/03/2015 BEATRICE KIM PASTE UP COPY CAMERA OPERATOR Ot 414.00 CORON ATHEROSCLER NOS TYPE VESSEL, NATIV 08/03/2015 BEATRICE KIM PASTE UP COPY CAMERA OPERATOR Ot 425.4 PRIM CARDIOMYOPATHY NEC 08/03/2015 BEATRICE KIM S PASTE UP COPY CAMERA OPERATOR Ot 625.0 DYSPAREUNIA 08/03/2015 BEATRICE KIM PASTE UP COPY CAMERA OPERATOR Ot V10.81 HX OF BONE MALIGNANCY 08/03/2015 BEATRICE KIM PASTE UP COPY CAMERA OPERATOR Ot V15.3 HX OF IRRADIATION 08/03/2015 BEATRICE KIM PASTE UP COPY CAMERA OPERATOR Ot V45.71 ACQUIRED ABSENCE OF BREAST AND NIPPLE 08/03/2015 BEATRICE KIM Ot V58.69 OTH MED,LT,CURRENT USE 08/03/2015 BEATRICE KIM PASTE UP COPY CAMERA OPERATOR Ot V86.0 ESTROGEN RECEPTOR POSITIVE STATUS [ER+] 08/03/2015 BEATRICE KIM PASTE UP COPY CAMERA OPERATOR Ot V87.41 PERSONAL HISTORY OF ANTINEOPLASTIC CHEMO 08/03/2015 BEATRICE KIM PASTE UP COPY CAMERA OPERATOR Ot V88.01 ACQUIRED ABSENCE OF BOTH CERVIX AND UTER 08/03/2015 KELLY NEWBERRY MD Ot 174.9 MALIGN NEOPL BREAST NOS 08/03/2015 KELLY NEWBERRY MD Ot V58.69 OTH MED,LT,CURRENT USE 08/03/2015 Ot 530.81 ESOPHAGEAL REFLUX 08/03/2015 LIZZIE FABIAN MD Ot 278.01 MORBID OBESITY 08/03/2015 LIZZIE FABIAN MD Ot V72.63 PRE-PROCEDURAL LABORATORY EXAMINATION 08/03/2015 LIZZIE FABIAN MD Ot V72.83 EXAM PRE-OPERATIVE NEC 08/03/2015 LIZZIE FABIAN MD Ot V74.8 SCREEN-BACTERIAL DIS NEC 08/03/2015 NITIN MICHAEL SPIRITUAL COUNSELOR Ot 241.1 NONTOX MULTINODUL GOITER 08/03/2015 BEATRICE KIM PASTE UP COPY CAMERA OPERATOR Ot 174.9 MALIGN NEOPL BREAST NOS 08/03/2015 BEATRICE KIM PASTE UP COPY CAMERA OPERATOR Ot 414.00 CORON ATHEROSCLER NOS TYPE VESSEL, NATIV 08/03/2015 BEATRICE KIM PASTE UP COPY CAMERA OPERATOR Ot 425.4 PRIM CARDIOMYOPATHY NEC 08/03/2015 BEATRICE KIM PASTE UP COPY CAMERA OPERATOR Ot V10.81 HX OF BONE MALIGNANCY 08/03/2015 BEATRICE KIM PASTE UP COPY CAMERA OPERATOR Ot V15.3 HX OF IRRADIATION 08/03/2015 BEATRICE KIM PASTE UP COPY CAMERA OPERATOR Ot V45.71 ACQUIRED ABSENCE OF BREAST AND NIPPLE 08/03/2015 BEATRICE KIM Ot V58.69 OTH MED,LT,CURRENT USE 08/03/2015 BEATRICE KIM PASTE UP COPY CAMERA OPERATOR Ot V86.0 ESTROGEN RECEPTOR POSITIVE STATUS [ER+] 08/03/2015 BEATIRCE KIM PASTE UP COPY CAMERA OPERATOR Ot V87.41 PERSONAL HISTORY OF ANTINEOPLASTIC CHEMO 08/03/2015 MARI KIMAH S PASTE UP COPY CAMERA OPERATOR Ot V88.01 ACQUIRED ABSENCE OF BOTH CERVIX AND UTER 08/03/2015 KIMBEATRICE PASTE UP COPY CAMERA OPERATOR Ot 174.9 MALIGN NEOPL BREAST NOS 08/03/2015 KIMBEATRICE Mena PASTE UP COPY CAMERA OPERATOR Ot 241.1 NONTOX MULTINODUL GOITER 08/03/2015 KIMBEATRICE Mena PASTE UP COPY CAMERA OPERATOR Ot 250.00 DIAB MARK WO COMPL, TYPE II OR UNSPEC TY 08/03/2015 KIMBEATRICE Mena PASTE UP COPY CAMERA OPERATOR Ot 272.4 HYPERLIPIDEMIA NEC/NOS 08/03/2015 KIMBEATRICE Mena PASTE UP COPY CAMERA OPERATOR Ot 401.9 HYPERTENSION NOS 08/03/2015 KIMBEATRICE Mena PASTE UP COPY CAMERA OPERATOR Ot 414.01 CORONARY ATHEROSCLEROSIS OF [place] CORON 08/03/2015 KIMBEATRICE Mena PASTE UP COPY CAMERA OPERATOR Ot 425.4 PRIM CARDIOMYOPATHY NEC 08/03/2015 KIMBEATRICE Mena PASTE UP COPY CAMERA OPERATOR Ot V10.81 HX OF BONE MALIGNANCY 08/03/2015 KIM BEATRICE Mena PASTE UP COPY CAMERA OPERATOR Ot V15.3 HX OF IRRADIATION 08/03/2015 KIM BEATRICE Mena PASTE UP COPY CAMERA OPERATOR Ot V45.02 AUTO IMPLANTABLE CARDIAC DEFIBRILLATOR I 08/03/2015 BEATRICE KIM PASTE UP COPY CAMERA OPERATOR Ot V45.71 ACQUIRED ABSENCE OF BREAST AND NIPPLE 08/03/2015 KIMBEATRICE PASTE UP COPY CAMERA OPERATOR Ot V45.82 PERCUTANEOUS TRANSLUM CORON ANGIOPLASTY 08/03/2015 BEATRICE KIM PASTE UP COPY CAMERA OPERATOR Ot V58.69 OTH MED,LT,CURRENT USE 08/03/2015 BEATRICE KIM PASTE UP COPY CAMERA OPERATOR Ot V86.0 ESTROGEN RECEPTOR POSITIVE STATUS [ER+] 08/03/2015 KIM BEATRICE Mena PASTE UP COPY CAMERA OPERATOR Ot V87.41 PERSONAL HISTORY OF ANTINEOPLASTIC CHEMO 08/03/2015 KIMBEATRICE Mena PASTE UP COPY CAMERA OPERATOR Ot V88.01 ACQUIRED ABSENCE OF BOTH CERVIX AND UTER 08/03/2015 KASHIF WALKER Ot I25.10 ATHSCL HEART DISEASE OF [place] CORONARY 08/03/2015 KASHIF WALKER Ot I42.9 CARDIOMYOPATHY, UNSPECIFIED 08/03/2015 KASHIF WALKER Ot Z08 ENCNTR FOR FOLLOW-UP EXAM AFTER TRTMT FO 08/03/2015 KASHIF WALKER Ot Z85.3 PERSONAL HISTORY OF MALIGNANT NEOPLASM O 08/03/2015 KASHIF WALKER Ot Z85.830 PERSONAL HISTORY OF MALIGNANT NEOPLASM O 08/03/2015 KASHIF WALKER Hemanth Ot Z90.11 ACQUIRED ABSENCE OF RIGHT BREAST AND NIP 08/03/2015 KASHIF WALKER Hemanth Ot Z90.710 ACQUIRED ABSENCE OF BOTH CERVIX AND UTER 08/03/2015 KASHIF WALKER Hemanth Ot Z92.21 PERSONAL HISTORY OF ANTINEOPLASTIC CHEMO 08/03/2015 KASHIF WALKER Hemanth Ot Z98.84 BARIATRIC SURGERY STATUS 08/04/2015 GILBERTO ARRIETA MD P Ot E04.1 NONTOXIC SINGLE THYROID NODULE 08/23/2015 GILBERTO ARRIETA MD Ot E04.1 NONTOXIC SINGLE THYROID NODULE 09/05/2015 GILBERTO ARRIETA MD Ot E04.1 NONTOXIC SINGLE THYROID NODULE 01/31/2016 DENISE, ANGELICAFAITH Hemanth Ot 174.9 MALIGN NEOPL BREAST NOS 01/31/2016 KASHIF WALKER Hemanth Ot V07.4 HORMONE REPLACEMENT THERAPY (POSTMENOPAU 01/31/2016 KASHIF WALKER Hemanth Ot V49.81 ASYMPT POSTMENOPAUSAL STATUS (AGE-RELATE 01/31/2016 KASHIF WALKER Hemanth Ot V82.81 SCREENING FOR OSTEOPOROSIS 01/31/2016 IRINA STINSON FACC, ALI FACP CCDS Ot 272.4 HYPERLIPIDEMIA NEC/NOS 01/31/2016 IRINA STINSON FACC, ALI FACP CCDS Ot 278.00 OBESITY, NOS 01/31/2016 IRINA STINSON FACC, ALI FACP CCDS Ot 414.00 CORON ATHEROSCLER NOS TYPE VESSEL, NATIV 01/31/2016 IRINA STINSON FACC, ALI FACP CCDS Ot 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.4 PRIM CARDIOMYOPATHY NEC 01/31/2016 IRINA STINSON FACC, ALI FACP CCDS Ot 428.0 CONGESTIVE HEART FAILURE NOS 01/31/2016 BEATRICE KIM PASTE UP COPY CAMERA OPERATOR Ot 174.9 MALIGN NEOPL BREAST NOS 01/31/2016 BEATRICE KIM PASTE UP COPY CAMERA OPERATOR Ot 414.00 CORON ATHEROSCLER NOS TYPE VESSEL, NATIV 01/31/2016 BEATRICE KIM PASTE UP COPY CAMERA OPERATOR Ot 425.4 PRIM CARDIOMYOPATHY NEC 01/31/2016 BEATRICE KIM PASTE UP COPY CAMERA OPERATOR Ot V10.81 HX OF BONE MALIGNANCY 01/31/2016 BEATRICE KIM PASTE UP COPY CAMERA OPERATOR Ot V15.3 HX OF IRRADIATION 01/31/2016 BEATRICE KIM PASTE UP COPY CAMERA OPERATOR Ot V45.71 ACQUIRED ABSENCE OF BREAST AND NIPPLE 01/31/2016 BEATRICE KIM PASTE UP COPY CAMERA OPERATOR Ot V58.69 OTH MED,LT,CURRENT USE 01/31/2016 BEATRICE KIM PASTE UP COPY CAMERA OPERATOR Ot V86.0 ESTROGEN RECEPTOR POSITIVE STATUS [ER+] 01/31/2016 BEATRICE KIM PASTE UP COPY CAMERA OPERATOR Ot V87.41 PERSONAL HISTORY OF ANTINEOPLASTIC CHEMO 01/31/2016 BEATRICE KIM PASTE UP COPY CAMERA OPERATOR Ot V88.01 ACQUIRED ABSENCE OF BOTH CERVIX AND UTER 01/31/2016 BERNY STINSON, GILBERTO P Ot 241.0 NONTOX UNINODULAR GOITER 01/31/2016 GILBERTO ARRIETA MD P Ot 241.0 NONTOX UNINODULAR GOITER 01/31/2016 GILBERTO ARRIETA MD P Ot 241.1 NONTOX MULTINODUL GOITER 01/31/2016 BEATRICE KIM PASTE UP COPY CAMERA OPERATOR Ot 174.9 MALIGN NEOPL BREAST NOS 01/31/2016 BEATRICE KIM PASTE UP COPY CAMERA OPERATOR Ot 414.00 CORON ATHEROSCLER NOS TYPE VESSEL, NATIV 01/31/2016 BEATRICE KIM PASTE UP COPY CAMERA OPERATOR Ot 425.4 PRIM CARDIOMYOPATHY NEC 01/31/2016 BEATRICE KIM PASTE UP COPY CAMERA OPERATOR Ot 625.0 DYSPAREUNIA 01/31/2016 BEATRICE KIM PASTE UP COPY CAMERA OPERATOR Ot V10.81 HX OF BONE MALIGNANCY 01/31/2016 BEATRICE KIM PASTE UP COPY CAMERA OPERATOR Ot V15.3 HX OF IRRADIATION 01/31/2016 BEATRICE KIM PASTE UP COPY CAMERA OPERATOR Ot V45.71 ACQUIRED ABSENCE OF BREAST AND NIPPLE 01/31/2016 BEATRICE KIM PASTE UP COPY CAMERA OPERATOR Ot V58.69 OTH MED,LT,CURRENT USE 01/31/2016 BEATRICE KIM PASTE UP COPY CAMERA OPERATOR Ot V86.0 ESTROGEN RECEPTOR POSITIVE STATUS [ER+] 01/31/2016 BEATRICE KIM PASTE UP COPY CAMERA OPERATOR Ot V87.41 PERSONAL HISTORY OF ANTINEOPLASTIC CHEMO 01/31/2016 BEATRICE KIM PASTE UP COPY CAMERA OPERATOR Ot V88.01 ACQUIRED ABSENCE OF BOTH CERVIX AND UTER 01/31/2016 BEATRICE KIM PASTE UP COPY CAMERA OPERATOR Ot 174.9 MALIGN NEOPL BREAST NOS 01/31/2016 BEATRICE KIM PASTE UP COPY CAMERA OPERATOR Ot 414.00 CORON ATHEROSCLER NOS TYPE VESSEL, NATIV 01/31/2016 BEATRICE KIM PASTE UP COPY CAMERA OPERATOR Ot 425.4 PRIM CARDIOMYOPATHY NEC 01/31/2016 BEATRICE KIM PASTE UP COPY CAMERA OPERATOR Ot 625.0 DYSPAREUNIA 01/31/2016 JUDY BEATRICE Mena PASTE UP COPY CAMERA OPERATOR Ot V10.81 HX OF BONE MALIGNANCY 01/31/2016 JUDY BEATRICE Mena PASTE UP COPY CAMERA OPERATOR Ot V15.3 HX OF IRRADIATION 01/31/2016 JUDY BEATRICE Mena PASTE UP COPY CAMERA OPERATOR Ot V45.71 ACQUIRED ABSENCE OF BREAST AND NIPPLE 01/31/2016 JUDY BEATRICE Mena PASTE UP COPY CAMERA OPERATOR Ot V58.69 OTH MED,LT,CURRENT USE 01/31/2016 MARI KIMGUZMAN Mena PASTE UP COPY CAMERA OPERATOR Ot V86.0 ESTROGEN RECEPTOR POSITIVE STATUS [ER+] 01/31/2016 MARI KIMGUZMAN Mena PASTE UP COPY CAMERA OPERATOR Ot V87.41 PERSONAL HISTORY OF ANTINEOPLASTIC CHEMO 01/31/2016 MARI KIMGUZMAN Rajesh JIMP Ot V88.01 ACQUIRED ABSENCE OF BOTH CERVIX AND UTER 01/31/2016 KELLY NEWBERRY MD Ot 174.9 MALIGN NEOPL BREAST NOS 01/31/2016 KELLY NEWBERRY MD Ot V58.69 OTH MED,LT,CURRENT USE 01/31/2016 Ot 530.81 ESOPHAGEAL REFLUX 01/31/2016 CAREN STINSON, LIZZIE Ot 278.01 MORBID OBESITY 01/31/2016 CAREN STINSON, LIZZIE Ot V72.63 PRE-PROCEDURAL LABORATORY EXAMINATION 01/31/2016 CAREN STINSON, LIZZIE Ot V72.83 EXAM PRE-OPERATIVE NEC 01/31/2016 LIZZIE FABIAN MD Ot V74.8 SCREEN-BACTERIAL DIS NEC 01/31/2016 NITIN MICHAEL SPIRITUAL COUNSELOR Ot 241.1 NONTOX MULTINODUL GOITER 01/31/2016 BEATRICE KIM PASTE UP COPY CAMERA OPERATOR Ot 174.9 MALIGN NEOPL BREAST NOS 01/31/2016 MARI KIMGUZMAN Rajesh PASTE UP COPY CAMERA OPERATOR Ot 414.00 CORON ATHEROSCLER NOS TYPE VESSEL, NATIV 01/31/2016 BEATRICE KIM PASTE UP COPY CAMERA OPERATOR Ot 425.4 PRIM CARDIOMYOPATHY NEC 01/31/2016 BEATRICE KIM PASTE UP COPY CAMERA OPERATOR Ot V10.81 HX OF BONE MALIGNANCY 01/31/2016 BEATRICE KIM PASTE UP COPY CAMERA OPERATOR Ot V15.3 HX OF IRRADIATION 01/31/2016 MARI KIMGUZMAN Rajesh PASTE UP COPY CAMERA OPERATOR Ot V45.71 ACQUIRED ABSENCE OF BREAST AND NIPPLE 01/31/2016 BEATRICE KIMP Ot V58.69 OTH MED,LT,CURRENT USE 01/31/2016 KIMBEATRICE Mena PASTE UP COPY CAMERA OPERATOR Ot V86.0 ESTROGEN RECEPTOR POSITIVE STATUS [ER+] 01/31/2016 JUDY BEATRICE Mena PASTE UP COPY CAMERA OPERATOR Ot V87.41 PERSONAL HISTORY OF ANTINEOPLASTIC CHEMO 01/31/2016 KIMBEATRICE PASTE UP COPY CAMERA OPERATOR Ot V88.01 ACQUIRED ABSENCE OF BOTH CERVIX AND UTER 01/31/2016 JUDY BEATRICE Mena PASTE UP COPY CAMERA OPERATOR Ot 174.9 MALIGN NEOPL BREAST NOS 01/31/2016 JUDY BEATRICE Mena PASTE UP COPY CAMERA OPERATOR Ot 241.1 NONTOX MULTINODUL GOITER 01/31/2016 JUDY BEATRICE Mena PASTE UP COPY CAMERA OPERATOR Ot 250.00 DIAB MARK WO COMPL, TYPE II OR UNSPEC TY 01/31/2016 JUDY BEATRICE Mena PASTE UP COPY CAMERA OPERATOR Ot 272.4 HYPERLIPIDEMIA NEC/NOS 01/31/2016 JUDY BEATRICE Mena PASTE UP COPY CAMERA OPERATOR Ot 401.9 HYPERTENSION NOS 01/31/2016 JUDY BEATRICE Mena PASTE UP COPY CAMERA OPERATOR Ot 414.01 CORONARY ATHEROSCLEROSIS OF [place] CORON 01/31/2016 JUDY BEATRICE Mena PASTE UP COPY CAMERA OPERATOR Ot 425.4 PRIM CARDIOMYOPATHY NEC 01/31/2016 JUDY BEATRICE Mena PASTE UP COPY CAMERA OPERATOR Ot V10.81 HX OF BONE MALIGNANCY 01/31/2016 JUDY BEATRICE Mena PASTE UP COPY CAMERA OPERATOR Ot V15.3 HX OF IRRADIATION 01/31/2016 JUDY BEATRICE Mena PASTE UP COPY CAMERA OPERATOR Ot V45.02 AUTO IMPLANTABLE CARDIAC DEFIBRILLATOR I 01/31/2016 JUDY BEATRICE Mena PASTE UP COPY CAMERA OPERATOR Ot V45.71 ACQUIRED ABSENCE OF BREAST AND NIPPLE 01/31/2016 MARI KIMGUZMAN Mena PASTE UP COPY CAMERA OPERATOR Ot V45.82 PERCUTANEOUS TRANSLUM CORON ANGIOPLASTY 01/31/2016 JUDY BEATRICE Mena PASTE UP COPY CAMERA OPERATOR Ot V58.69 OTH MED,LT,CURRENT USE 01/31/2016 JUDY BEATRICE Mena PASTE UP COPY CAMERA OPERATOR Ot V86.0 ESTROGEN RECEPTOR POSITIVE STATUS [ER+] 01/31/2016 JUDY BEATRICE Mena PASTE UP COPY CAMERA OPERATOR Ot V87.41 PERSONAL HISTORY OF ANTINEOPLASTIC CHEMO 01/31/2016 JUDY BEATRICE Mena PASTE UP COPY CAMERA OPERATOR Ot V88.01 ACQUIRED ABSENCE OF BOTH CERVIX AND UTER 01/31/2016 KASHIF WALKER Ot I25.10 ATHSCL HEART DISEASE OF [place] CORONARY 01/31/2016 KASHIF WALKER Ot I42.9 CARDIOMYOPATHY, UNSPECIFIED 01/31/2016 KASHIF WALKER N Ot Z08 ENCNTR FOR FOLLOW-UP EXAM AFTER TRTMT FO 01/31/2016 KASHIF WALKER N Ot Z85.3 PERSONAL HISTORY OF MALIGNANT NEOPLASM O 01/31/2016 DENISEKASHIF BROWNE N Ot Z85.830 PERSONAL HISTORY OF MALIGNANT NEOPLASM O 01/31/2016 KASHIF WALKER N Ot Z90.11 ACQUIRED ABSENCE OF RIGHT BREAST AND NIP 01/31/2016 KASHIF WALKER N Ot Z90.710 ACQUIRED ABSENCE OF BOTH CERVIX AND UTER 01/31/2016 DENISEKASHIF N Ot Z92.21 PERSONAL HISTORY OF ANTINEOPLASTIC CHEMO 01/31/2016 DENISEKASHIF BROWNE N Ot Z98.84 BARIATRIC SURGERY STATUS 01/31/2016 BERNY STINSON, GILBERTO Maciel Ot E04.1 NONTOXIC SINGLE THYROID NODULE 01/31/2016 KASHIF WALKER N Ot I25.10 ATHSCL HEART DISEASE OF [place] CORONARY 01/31/2016 DENISEKASHIF BROWNE N Ot I42.9 CARDIOMYOPATHY, UNSPECIFIED 01/31/2016 DENISEKASHIF BROWNE N Ot Z08 ENCNTR FOR FOLLOW-UP EXAM AFTER TRTMT FO 01/31/2016 KASHIF WALKER N Ot Z85.3 PERSONAL HISTORY OF MALIGNANT NEOPLASM O 01/31/2016 DENISEKASHIF BROWNE N Ot Z85.830 PERSONAL HISTORY OF MALIGNANT NEOPLASM O 01/31/2016 KASHIF WALKER N Ot Z90.11 ACQUIRED ABSENCE OF RIGHT BREAST AND NIP 01/31/2016 KASHIF WALKER N Ot Z90.710 ACQUIRED ABSENCE OF BOTH CERVIX AND UTER 01/31/2016 KASHIF WALKER N Ot Z92.21 PERSONAL HISTORY OF ANTINEOPLASTIC CHEMO 01/31/2016 KASHIF WALKER N Ot Z98.84 BARIATRIC SURGERY STATUS 02/01/2016 BERNY STINSON, GILBERTO Maciel Ot E04.1 NONTOXIC SINGLE THYROID NODULE 02/17/2016 DENISEKASHIF N Ot I25.10 ATHSCL HEART DISEASE OF [place] CORONARY 02/17/2016 DENISEKASHIF N Ot I42.9 CARDIOMYOPATHY, UNSPECIFIED 02/17/2016 DENISEKASHIF N Ot Z08 ENCNTR FOR FOLLOW-UP EXAM AFTER TRTMT FO 02/17/2016 KASHIF WALKER N Ot Z85.3 PERSONAL HISTORY OF MALIGNANT NEOPLASM O 02/17/2016 KASHIF WALKER N Ot Z85.830 PERSONAL HISTORY OF MALIGNANT NEOPLASM O 02/17/2016 KASHIF WALKER N Ot Z90.11 ACQUIRED ABSENCE OF RIGHT BREAST AND NIP 02/17/2016 KASHIF WALKER N Ot Z90.710 ACQUIRED ABSENCE OF BOTH CERVIX AND UTER 02/17/2016 KASHIF WALKER N Ot Z92.21 PERSONAL HISTORY OF ANTINEOPLASTIC CHEMO 02/17/2016 DENISE ANGELICAFAITH N Ot Z98.84 BARIATRIC SURGERY STATUS 02/23/2016 BERNY SITNSON, GILBERTO Maciel Ot E04.1 NONTOXIC SINGLE THYROID NODULE 03/01/2016 KASHIF WALKER N Ot I25.10 ATHSCL HEART DISEASE OF [place] CORONARY 03/01/2016 KASHIF WALKER N Ot I42.9 CARDIOMYOPATHY, UNSPECIFIED 03/01/2016 KASHIF WALKER N Ot Z08 ENCNTR FOR FOLLOW-UP EXAM AFTER TRTMT FO 03/01/2016 KASHIF WALKER N Ot Z85.3 PERSONAL HISTORY OF MALIGNANT NEOPLASM O 03/01/2016 KASHIF WALKER N Ot Z85.830 PERSONAL HISTORY OF MALIGNANT NEOPLASM O 03/01/2016 KASHIF WALKER N Ot Z90.11 ACQUIRED ABSENCE OF RIGHT BREAST AND NIP 03/01/2016 KASHIF WALKER N Ot Z90.710 ACQUIRED ABSENCE OF BOTH CERVIX AND UTER 03/01/2016 KASHIF WALKER N Ot Z92.21 PERSONAL HISTORY OF ANTINEOPLASTIC CHEMO 03/01/2016 KASHIF WALKER N Ot Z98.84 BARIATRIC SURGERY STATUS 03/01/2016 BERNY STINSON, GILBERTO Maciel Ot E04.1 NONTOXIC SINGLE THYROID NODULE 04/01/2016 KASHIF WALKER N Ot I25.10 ATHSCL HEART DISEASE OF [place] CORONARY 04/01/2016 KASHIF WALKER N Ot I42.9 CARDIOMYOPATHY, UNSPECIFIED 04/01/2016 KASHIF WALKER N Ot Z08 ENCNTR FOR FOLLOW-UP EXAM AFTER TRTMT FO 04/01/2016 KASHIF WALKER N Ot Z85.3 PERSONAL HISTORY OF MALIGNANT NEOPLASM O 04/01/2016 DENISE ANGELICAFAITH N Ot Z85.830 PERSONAL HISTORY OF MALIGNANT NEOPLASM O 04/01/2016 DENISE ANGELICAFAITH N Ot Z90.11 ACQUIRED ABSENCE OF RIGHT BREAST AND NIP 04/01/2016 DENISE ANGELICAFAITH N Ot Z90.710 ACQUIRED ABSENCE OF BOTH CERVIX AND UTER 04/01/2016 KASHIF WALKER Hemanth Ot Z92.21 PERSONAL HISTORY OF ANTINEOPLASTIC CHEMO 04/01/2016 KASHIF WALKER Hemanth Ot Z98.84 BARIATRIC SURGERY STATUS 07/27/2016 IRINA STINSON FACC, ALI FACP CCDS Ot E78.4 OTHER HYPERLIPIDEMIA 07/27/2016 IRINA STINSON FACC, ALI FACP CCDS Ot I25.10 ATHSCL HEART DISEASE OF [place] CORONARY 07/27/2016 IRINA RAPPC, ALI FACP CCDS Ot I42.0 DILATED CARDIOMYOPATHY 07/27/2016 IRINA STINSON FACC, ALI FACP CCDS Ot E78.4 OTHER HYPERLIPIDEMIA 07/27/2016 IRINA STINSON FACC, ALI FACP CCDS Ot I25.10 ATHSCL HEART DISEASE OF [place] CORONARY 07/27/2016 IRINA RAPPC, ALI FACP CCDS Ot I42.0 DILATED CARDIOMYOPATHY 07/27/2016 IRINA RAPPC, ALI FACP CCDS Ot E78.4 OTHER HYPERLIPIDEMIA 07/27/2016 IRINA STINSON FACC, ALI FACP CCDS Ot I25.10 ATHSCL HEART DISEASE OF [place] CORONARY 07/27/2016 IRINA STINSON FACC, ALI FACP CCDS Ot I42.0 DILATED CARDIOMYOPATHY 07/27/2016 IRINA STINSON FACC, ALI FACP CCDS Ot E78.4 OTHER HYPERLIPIDEMIA 07/27/2016 IRINA RAPPC, ALI FACP CCDS Ot I25.10 ATHSCL HEART DISEASE OF [place] CORONARY 07/27/2016 IRINA RAPPC, ALI FACP CCDS Ot I42.0 DILATED CARDIOMYOPATHY 07/27/2016 IRINA STINSON FACC, ALI FACP CCDS Ot E78.4 OTHER HYPERLIPIDEMIA 07/27/2016 IRINA STINSON FACC, ALI FACP CCDS Ot I25.10 ATHSCL HEART DISEASE OF [place] CORONARY 07/27/2016 IRINA STINSON FACC, ALI FACP CCDS Ot I42.0 DILATED CARDIOMYOPATHY 08/14/2016 IRINA RAPPC, ALI FACP CCDS Ot E78.4 OTHER HYPERLIPIDEMIA 08/14/2016 IRINA RAPPC, ALI FACP CCDS Ot I25.10 ATHSCL HEART DISEASE OF [place] CORONARY 08/14/2016 IRNIA RAPPC, ALI FACP CCDS Ot I42.0 DILATED CARDIOMYOPATHY 08/23/2016 IRINA RAPP, ALI FACP CCDS Ot E78.4 OTHER HYPERLIPIDEMIA 08/23/2016 IRINA STINSON FAC, ALI FACP CCDS Ot I25.10 ATHSCL HEART DISEASE OF [place] CORONARY 08/23/2016 IRINA STINSON FAC, ALI FACP CCDS Ot I42.0 DILATED CARDIOMYOPATHY 01/25/2017 MAR GANDHI MD Ot E04.2 NONTOXIC MULTINODULAR GOITER 01/25/2017 MAR GANDHI MD Ot I25.10 ATHSCL HEART DISEASE OF [place] CORONARY 01/25/2017 MAR GANDHI MD Ot I42.9 CARDIOMYOPATHY, UNSPECIFIED 01/25/2017 MAR GANDHI MD Ot Z08 ENCNTR FOR FOLLOW-UP EXAM AFTER TRTMT FO 01/25/2017 MAR GANDHI MD Ot Z79.82 FLOCCULATOR OPERATOR (CURRENT) USE OF ASPIRIN 01/25/2017 MAR GANDHI MD Ot Z79.899 OTHER FLOCCULATOR OPERATOR (CURRENT) DRUG THERAPY 01/25/2017 MAR GANDHI MD Ot Z85.3 PERSONAL HISTORY OF MALIGNANT NEOPLASM O 01/25/2017 MAR GANDHI MD Ot Z85.830 PERSONAL HISTORY OF MALIGNANT NEOPLASM O 01/25/2017 MAR GANDHI MD Ot Z90.11 ACQUIRED ABSENCE OF RIGHT BREAST AND NIP 01/25/2017 MAR GANDHI MD Ot Z90.710 ACQUIRED ABSENCE OF BOTH CERVIX AND UTER 01/25/2017 MAR GANDHI MD Ot Z92.21 PERSONAL HISTORY OF ANTINEOPLASTIC CHEMO 01/25/2017 MAR GANDHI MD Ot Z98.84 BARIATRIC SURGERY STATUS 01/30/2017 MAR GANDHI MD Ot E04.2 NONTOXIC MULTINODULAR GOITER 01/30/2017 MAR GANDHI MD Ot I25.10 ATHSCL HEART DISEASE OF [place] CORONARY 01/30/2017 MAR GANDHI MD Ot I42.9 CARDIOMYOPATHY, UNSPECIFIED 01/30/2017 MAR GANDHI MD Ot Z08 ENCNTR FOR FOLLOW-UP EXAM AFTER TRTMT FO 01/30/2017 MAR GANDHI MD Ot Z79.82 FLOCCULATOR OPERATOR (CURRENT) USE OF ASPIRIN 01/30/2017 MAR GANDHI MD Ot Z79.899 OTHER ASSISTED (CURRENT) DRUG THERAPY 01/30/2017 MAR GANDHI MD Ot Z85.3 PERSONAL HISTORY OF MALIGNANT NEOPLASM O 01/30/2017 MAR GANDHI MD Ot Z85.830 PERSONAL HISTORY OF MALIGNANT NEOPLASM O 01/30/2017 MAR GANDHI MD Ot Z90.11 ACQUIRED ABSENCE OF RIGHT BREAST AND NIP 01/30/2017 MAR GANDHI MD Ot Z90.710 ACQUIRED ABSENCE OF BOTH CERVIX AND UTER 01/30/2017 MAR GANDHI MD Ot Z92.21 PERSONAL HISTORY OF ANTINEOPLASTIC CHEMO 01/30/2017 MAR GANDHI MD Ot Z98.84 BARIATRIC SURGERY STATUS 01/31/2017 GILBERTO ARRIETA MD P Ot E04.2 NONTOXIC MULTINODULAR GOITER 02/19/2017 GILBERTO ARRIETA MD Ot E04.2 NONTOXIC MULTINODULAR GOITER 02/20/2017 MAR GANDHI MD Ot E04.2 NONTOXIC MULTINODULAR GOITER 02/20/2017 MAR GANDHI MD Ot I25.10 ATHSCL HEART DISEASE OF [place] CORONARY 02/20/2017 MAR GANDHI MD Ot I42.9 CARDIOMYOPATHY, UNSPECIFIED 02/20/2017 MAR GANDHI MD Ot Z08 ENCNTR FOR FOLLOW-UP EXAM AFTER TRTMT FO 02/20/2017 MAR GANDHI MD Ot Z79.82 ASSISTED (CURRENT) USE OF ASPIRIN 02/20/2017 MAR GANDHI MD Ot Z79.899 OTHER ASSISTED (CURRENT) DRUG THERAPY 02/20/2017 MAR GANDHI MD Ot Z85.3 PERSONAL HISTORY OF MALIGNANT NEOPLASM O 02/20/2017 MAR GANDHI MD Ot Z85.830 PERSONAL HISTORY OF MALIGNANT NEOPLASM O 02/20/2017 MAR GANDHI MD Ot Z90.11 ACQUIRED ABSENCE OF RIGHT BREAST AND NIP 02/20/2017 MAR GANDHI MD Ot Z90.710 ACQUIRED ABSENCE OF BOTH CERVIX AND UTER 02/20/2017 MAR GANDHI MD Ot Z92.21 PERSONAL HISTORY OF ANTINEOPLASTIC CHEMO 02/20/2017 MAR GANDHI MD Ot Z98.84 BARIATRIC SURGERY STATUS 02/20/2017 IRINA STINSON FACC, ALI FACP CCDS Ot E78.4 OTHER HYPERLIPIDEMIA 02/20/2017 IRINA STINSON FACC, ALI FACP CCDS Ot I25.10 ATHSCL HEART DISEASE OF [place] CORONARY 02/20/2017 IRINA STINSON FACC, ALI FACP CCDS Ot I25.5 ISCHEMIC CARDIOMYOPATHY 02/20/2017 IRINA STINSON FACC, ALI FACP CCDS Ot I42.0 DILATED CARDIOMYOPATHY 02/20/2017 IRINA STINSON FACC, ALI FACP CCDS Ot I50.32 CHRONIC DIASTOLIC (CONGESTIVE) HEART LUISA 02/27/2017 MAR GANDHI MD Ot E04.2 NONTOXIC MULTINODULAR GOITER 02/27/2017 MAR GANDHI MD Ot I25.10 ATHSCL HEART DISEASE OF [place] CORONARY 02/27/2017 MAR GANDHI MD Ot I42.9 CARDIOMYOPATHY, UNSPECIFIED 02/27/2017 MAR GANDHI MD, Ot Z08 ENCNTR FOR FOLLOW-UP EXAM AFTER TRTMT FO 02/27/2017 MAR GANDHI MD, Ot Z79.82 FLOCCULATOR OPERATOR (CURRENT) USE OF ASPIRIN 02/27/2017 MAR GANDHI MD, Ot Z79.899 OTHER FLOCCULATOR OPERATOR (CURRENT) DRUG THERAPY 02/27/2017 MAR GANDHI MD, Ot Z85.3 PERSONAL HISTORY OF MALIGNANT NEOPLASM O 02/27/2017 MAR GANDHI MD, Ot Z85.830 PERSONAL HISTORY OF MALIGNANT NEOPLASM O 02/27/2017 MAR GANDHI MD, Ot Z90.11 ACQUIRED ABSENCE OF RIGHT BREAST AND NIP 02/27/2017 MAR GANDHI MD, Ot Z90.710 ACQUIRED ABSENCE OF BOTH CERVIX AND UTER 02/27/2017 MAR GANDHI MD, Ot Z92.21 PERSONAL HISTORY OF ANTINEOPLASTIC CHEMO 02/27/2017 MAR GANDHI MD Ot Z98.84 BARIATRIC SURGERY STATUS 03/01/2017 IRINA STINSON FACC, ALI FACP CCDS Ot E78.4 OTHER HYPERLIPIDEMIA 03/01/2017 IRINA STINSON FACC, ALI FACP CCDS Ot I25.10 ATHSCL HEART DISEASE OF [place] CORONARY 03/01/2017 IRINA STINSON FACC, ALI FACP CCDS Ot I25.5 ISCHEMIC CARDIOMYOPATHY 03/01/2017 IRINA STINSON FACC, ALI FACP CCDS Ot I42.0 DILATED CARDIOMYOPATHY 03/01/2017 IRINA STINSON FACC, ALI FACP CCDS Ot I50.32 CHRONIC DIASTOLIC (CONGESTIVE) HEART LUISA 03/01/2017 BERNY STINSON, GILBERTO Maciel Ot E04.2 NONTOXIC MULTINODULAR GOITER Procedures Code Description Performed By Performed On 43.82 LAPAROSCOPIC VERTICAL ( SLEEVE) GASTRECTO 05/27/2014 45.13 OTHER ENDOSCOPY OF SM INTEST 05/27/2014 Results There is no data. Encounters ACCT No. Visit Date/Time Discharge Status Pt. Type Provider Facility Loc./Unit Complaint [id number] 01/24/2017 09:53:00 04/24/2017 00:01:00 DIS Outpatient MAR GANDHI MD [facility] ONC [id number] 01/30/2017 09:14:00 01/30/2017 23:59:59 CLS Outpatient IRINA STINSON FACC, MELISSA RICK CCDS [facility] CARD CAD [id number] 01/25/2017 10:40:00 01/25/2017 23:59:59 CLS Outpatient GILBERTO ARRIETA MD [facility] RAD THYROID NODULE [id number] 07/24/2016 11:08:00 07/24/2016 23:59:59 CLS Outpatient MELISSA AREVALO MD, FACC, FACP CCDS [facility] CARD I25.10 CAD [id number] 01/02/2016 08:51:00 04/01/2016 00:01:00 DIS Outpatient KASHIF WALKER [facility] ONC [id number] 01/31/2016 09:15:00 01/31/2016 23:59:59 CLS Outpatient GILBERTO ARRIETA MD [facility] RAD THYROID NODULE [id number] 08/03/2015 08:41:00 08/03/2015 23:59:59 CLS Outpatient GILBERTO ARRIETA MD [facility] RAD THYROID NODULE [id number] 01/27/2015 09:48:00 04/27/2015 00:01:00 DIS Outpatient KASHIF WALKER [facility] ONC [id number] 10/05/2014 06:57:00 10/05/2014 13:08:00 DIS Outpatient MELISSA AREVALO MD, FACC, FACP CCDS [facility] CATH END OF LIFE BATTERY CHANGE,CARDIOMYOPATHY [id number] 07/29/2014 16:34:00 07/29/2014 23:59:59 CLS Outpatient BEATRICE KIM [facility] ONC [id number] 07/27/2014 13:17:00 07/27/2014 23:59:59 CLS Outpatient BEATRICE KIM PASTE UP COPY CAMERA OPERATOR [facility] ONC [id number] 07/12/2014 10:00:00 07/12/2014 23:59:59 CLS Outpatient CRISTIANA BELLO PASTE UP COPY CAMERA OPERATOR [facility] QUICK [id number] 06/24/2014 11:36:00 06/24/2014 23:59:59 CLS Outpatient NITIN MICHAEL SPIRITUAL COUNSELOR [facility] RAD MULTI NODULAR GOITER [id number] 05/28/2014 13:45:00 05/28/2014 17:30:00 DIS Inpatient LIZZIE FABIAN MD [facility] SURGICAL MORBID OBESITY POST GASTIC SLEEVE [id number] 05/19/2014 08:51:00 05/19/2014 23:59:59 CLS Outpatient LIZZIE FABIAN MD [facility] PREOP MORBID OBESITY [id number] 02/11/2014 09:16:00 02/11/2014 23:59:59 CLS Outpatient KELLY NEWBERRY MD [facility] RAD BREAST CA,MEDICATION RISK [id number] 02/09/2014 08:47:00 02/09/2014 23:59:59 CLS Outpatient BEATRICE KIM [facility] ONC [id number] 01/19/2014 06:41:00 01/19/2014 15:00:00 DIS Outpatient IRINA STINSON FACCMELISSA FACP CCDS [facility] CATH ANGINA,CAD [id number] 07/15/2013 08:47:00 07/15/2013 23:59:59 CLS Outpatient BEATRICE KIMP [facility] ONC [id number] 07/01/2013 12:08:00 07/01/2013 23:59:59 CLS Outpatient GILBERTO ARRIETA MD [facility] RAD THYROID NODULE [id number] 02/11/2013 10:55:00 02/11/2013 23:59:59 CLS Outpatient GILBERTO ARRIETA MD [facility] RAD RIGHT THYROID NODULE [id number] 02/05/2013 12:21:00 02/05/2013 23:59:59 CLS Outpatient GILBERTO ARRIETA MD [facility] RAD RT THYROID NODULE [id number] 01/08/2013 10:21:00 01/08/2013 23:59:59 CLS Outpatient BEATRICE KIM PASTE UP COPY CAMERA OPERATOR [facility] ONC [id number] 01/02/2013 09:01:00 01/02/2013 23:59:59 CLS Outpatient KASHIF WALKER [facility] RAD HORMONAL THERAPY,POST MENOPAUSAL [id number] 12/31/2012 08:17:00 12/31/2012 23:59:59 CLS Outpatient IRINA STINSON FACC, MELISSA RAPPP CCDS [facility] CARD CAD,CHF,HLP [id number] 09/24/2012 09:37:00 09/24/2012 23:59:59 CLS Outpatient [id number] 07/09/2012 07:46:00 07/09/2012 23:59:59 CLS Outpatient [id number] 07/04/2012 06:53:00 07/04/2012 11:00:00 DIS Outpatient [id number] 07/03/2012 07:12:00 07/03/2012 23:59:59 CLS Outpatient [id number] 07/02/2012 12:02:00 07/02/2012 23:59:59 CLS Outpatient [id number] 04/25/2017 00:39:00 PEDRO PreadAMR Varela MD [facility] ONC [id number] 04/30/2014 09:36:00 Document Registration [id number] 01/19/2014 06:42:00 Document Registration [id number] 01/19/2014 06:42:00 Document Registration [id number] 07/18/2010 05:34:00 Document Registration [id number] 07/17/2010 08:00:00 Document Registration [id number] 06/12/2010 14:52:00 Document Registration [id number] 04/10/2010 12:19:00 Document Registration [id number] 01/09/2010 14:45:00 Document Registration [id number] 12/29/2009 09:39:00 Document Registration [id number] 12/13/2009 06:00:00 Document Registration [id number] 12/07/2009 07:58:00 Document Registration [id number] 11/02/2009 14:35:00 Document Registration [id number] 10/28/2009 09:36:00 Document Registration [id number] 10/20/2009 10:53:00 Document Registration [id number] 10/06/2009 17:27:00 Document Registration [id number] 09/23/2009 06:15:00 Document Registration [id number] 09/21/2009 08:04:00 Document Registration [id number] 09/15/2009 13:36:00 Document Registration [id number] 09/12/2009 12:54:00 Document Registration [id number] 09/06/2009 05:37:00 Document Registration [id number] 09/02/2009 12:02:00 Document Registration [id number] 08/17/2009 09:40:00 Document Registration [id number] 12/27/2008 07:42:00 Document Registration [id number] 11/16/2008 08:27:00 Document Registration [id number] 10/18/2008 12:20:00 Document Registration [id number] 10/18/2008 06:52:00 Document Registration [id number] 10/15/2008 09:51:00 Document Registration
--- NOTE | 2017-04-25 18:24 | ED Lower Extremity ---
General Stated Complaint: L ANKLE POSS BREAK Source: patient Exam Limitations: no limitations History of Present Illness Date Seen by Provider: Apr 25, 2017 Time Seen by Provider: 18:21 Initial Comments To ER with c/o bilateral ankle pain left greater than right. Pt was going out to the barn when she twisted her ankle. Has left ankle pain and deformity and right ankle tenderness. No other injuries. History of dilated cardiomyopathy with AICD placement. Onset: just prior to arrival Severity: moderate Method of Injury: fell, twisted Modifying Factors: Improves With Movement Allergies and Home Medications Allergies Coded Allergies: adhesive (Verified Allergy, Intermediate, RASH, 05/27/14) PAPER TAPE Home Medications Acetaminophen 325 Mg Tablet, 650 MG PO Q4H Prescribed by: MELISSA AREVALO on 10/05/14 1034 Aspirin 81 Mg Tablet.dr, 81 MG PO DAILY, (Reported) Atorvastatin 20 Mg Tablet, 20 MG PO HS, (Reported) Calcium Carbonate/Vitamin D3 1 Each Tablet, 1 TAB PO DAILY, (Reported) Carvedilol 12.5 Mg Tablet, 12.5 MG PO BID, (Reported) Cefuroxime Axetil 500 Mg Tablet, 500 MG PO BID Prescribed by: MELISSA AREVALO on 10/05/14 1032 Cholecalciferol (Vitamin D3) 2,000 Unit Tablet, 2,000 UNIT PO DAILY, (Reported) Clopidogrel Bisulfate 75 Mg Tablet, 75 MG PO DAILY, (Reported) Exemestane 25 Mg Tablet, 25 MG PO DAILY, (Reported) AROMASIN Furosemide 40 Mg Tab, 40 MG PO MON, WED, FRI, (Reported) Hydrocodone/Acetaminophen 1 Each Tablet, 1 EACH PO Q4H PRN for PAIN-SEVERE Prescribed by: ELISABET ROE on 04/25/171918 Lisinopril 10 Mg Tablet, 10 MG PO DAILY, (Reported) Multivits W-Fe,Other Min 1 Tab.chew Tab.chew, 1 TAB.CHEW PO DAILY, (Reported) Spironolactone 25 Mg Tablet, 25 MG PO MON, WED, FRI, (Reported) Patient Home Medication List Home Medication List Reviewed: Yes Constitutional: see HPI EENTM: see HPI Respiratory: no symptoms reported Cardiovascular: no symptoms reported Genitourinary: no symptoms reported Musculoskeletal: see HPI Skin: no symptoms reported Psychiatric/Neurological: No Symptoms Reported Past Sxvsyix-Knvclb-Dhzdnx Hx Patient Social History Recent Foreign Travel: No Contact w/Someone Who Travel: No Immunizations Up To Date Date of Pneumonia Vaccine: Feb 25, 2009 Surgeries Surgeries: Breast, Coronary Stent, Hysterectomy Reproductive System Hx Reproductive Disorders: Yes (HYSTERECTOMY) Sexually Transmitted Disease: No HIV/AIDS: No Female Reproductive Disorders: Denies Cancer Cancer: Breast, Cervical Psychosocial Behavioral Health Disorders: Depression Blood Transfusions Adverse Reaction to a Blood Tr: No Family Medical History Family Medial History: Arthritis 19 FATHER 19 MOTHER Cardiovascular disease 19 FATHER 19 MOTHER Diabetes mellitus 19 FATHER FH: obesity G8 BROTHER Physical Exam Vital Signs Vital Signs - First Documented 04/25/17 3 18:20 21:57 Temp 98.1 Pulse 88 Resp 18 B/P (MAP) 132/66 (88) Pulse Ox 97 O2 Delivery Room Air Capillary Refill : General Appearance: WD/WN, no apparent distress HEENT: PERRL/EOMI, normal ENT inspection Neck: non-tender, full range of motion Respiratory: normal breath sounds, no respiratory distress, no accessory muscle use Gastrointestinal: normal bowel sounds, non tender Hips: bilateral hip non-tender, bilateral hip normal inspection, bilateral hip normal range of motion Legs: bilateral leg non-tender, bilateral leg normal inspection, bilateral leg normal range of motion Knees: bilateral knee non-tender, bilateral knee normal inspection, bilateral knee normal range of motion Ankles: left ankle pain, left ankle soft tissue tenderness, left ankle swelling , left ankle other (deformity. Dorsalis pedis pulse is +2 bilaterally. ) Neurologic/Psychiatric: alert, normal mood/affect, oriented x 3 Skin: normal color, warm/dry Comments There are no lacerations or puncture wounds to suggest that this would be an open fracture. Progress/Results/Core Measures Results/Orders My Orders Orders - ELISABET ROE APRN Ankle, Bilateral, 3 Views (04/25/17 18:20) Fentanyl Injection (Sublimaze Injection (04/25/17 18:30) Saline Lock/Iv-Start (04/25/17 18:20) Fentanyl Injection (Sublimaze Injection (04/25/17 19:30) Rx-Hydrocodone/Apap 5-325 Mg (Rx-Vicodin (04/25/17 19:30) Ondansetron Injection (Zofran Injectio (04/25/17 19:45) Rx-Ondansetron Po (Rx-Zofran Po) (04/25/17 19:39) Ondansetron Injection (Zofran Injectio (04/25/17 19:38) Medications Given in ED Vital Signs/I&O Vital Sign - Last 12Hours 04/25/17 04/25/17 18:20 21:57 Temp 98.1 Pulse 88 92 Resp 18 18 B/P (MAP) 132/66 (88) 138/76 Pulse Ox 97 95 O2 Delivery Room Air Departure Communication (Admissions) Progress Notes I spoke with Dr. Hurtado from orthopedics. He recommends splinting of the leg since she is neurovascularly intact, elevate, nonweightbearing, follow-up with orthopedics. Patient has established care with Dr. Izaguirre previously she would like to see him again. 1938- patient was splinted in both a posterior short leg and stirrup style splint of the left lower extremity. She remained neurovascularly intact the toes even after splint application. We will discharge to home with crutches, would like to try a wheeled knee scooter for mobility at home rather than wheelchair or crutches. They will get this at [facility] or order online depending on availability. I will write him a prescription for this to see insurance will help cover the cost. Impression Impression: Primary Impression: Trimalleolar fracture of ankle, closed Disposition: HOME, SELF-CARE Condition: Stable Departure-Patient Inst. Decision time for Depature: 18:54 Referrals: CHACHA JOSE MD, DAVID G DPM GRANTHAM, JONATHAN MD OGDEN,SAMMIE HERRERA MD, MD (PCP/Family) Primary Care Physician PRASHANT ONEILL MICHAEL P MD Patient Instructions: Ankle Fracture (DC) Add. Discharge Instructions: 1. Wear the splint at all times. Do not remove this for any reason to follow-up with orthopedics. Call Dr. Izaguirre to be seen as soon as possible. Do not put any weight on the left leg. Return to ER for any coldness of the foot or numbness of the foot or toes Scripts Hydrocodone/Acetaminophen (Sidon 5-325 Tablet) 1 Each Tablet 1 EACH PO Q4H Y for PAIN-SEVERE, #30 TAB Prov: ELISABET ROE APRN 04/25/17 Copy Copies To 1: GILBERTO IZAGUIRRE MD, PETER J APRN Mar 1, 2018 18:24
[2017-04-25] MEDS ORDERED: fentaNYL INJECTION 100 MCG/2 ML AMP IVP ONE ×2 (18:30→19:30)
--- NOTE | 2017-04-25 19:11 | Diagnostic Imaging Report ---
EXAMINATION: Right ankle, 3 views. Left ankle, 3 views. COMPARISON: None. HISTORY: 56-year-old female, bilateral ankle pain. Left ankle swelling and deformity. FINDINGS: There is no right ankle joint effusion. The alignment of the ankle mortise on the right is unremarkable. There is an area of ossification adjacent to the anterior process of the calcaneus concerning for a fracture of the anterior process of the calcaneus on the right. There is a calcaneal heel spur. There is a small os perineum. There is a very small area of ossification adjacent to the dorsal aspect of head of the talus which may potentially reflect a tiny fracture fragment. There is a displaced fracture transversely extending through the base of the medial malleolus with distal and lateral displacement of the distal fracture fragment. There is gross abnormal widening of the medial clear space of the left ankle mortise. There is a displaced obliquely oriented fibular diaphyseal fracture extending upwards from the level of the tibial plafond. The distal fracture fragment is displaced laterally by 5 mm. There is lack of normal tibiofibular overlap. There is a mildly displaced vertically oriented fracture extending through the posterior malleolus on the left. There is a calcaneal heel spur. IMPRESSION: 1. Findings concerning for a mildly displaced fracture of the anterior process of the calcaneus on the right. 2. Very small ossification adjacent to the dorsal aspect of the head of the talus which may relate to a tiny mildly displaced fracture fragment. 3. Displaced fracture extending transversely through the base of the medial malleolus on the left as well as displaced obliquely oriented fibular fracture extending upwards from the level of the tibial plafond and mildly displaced posterior malleolar fracture on the left. 4. Abnormal alignment of the left ankle mortise. Dictated by: Dictated on workstation # [id number]
[2017-04-25] MEDS ORDERED: HYDR-757 PO (19:19)
[2017-04-25] MEDS ORDERED: RX-HYDROCODONE/APAP 5/325 MG #4 TAB PK PO PRN (19:30)
[2017-04-25] MEDS ORDERED: ONDANSETRON 4 MG/2 ML (SDV) Z0FRAN ONE (19:38)
[2017-04-25] MEDS ORDERED: RX-ONDANSETRON 4 MG ODT (ZOFRAN) PPK #4 PO STA (19:39)
[2017-04-25] MEDS ORDERED: ONDANSETRON 4 MG/2 ML (SDV) Z0FRAN IVP ONE (19:45)
[2017-04-25 21:57] VITALS: BP 138/76
== END 2017-04-25 21:57 | disposition home or self-care (01) ==
LOC: EDUNIT# 17:53 → ER 17:54
DX: S82.851A Displaced trimalleolar fracture of right lower leg, initial encounter for closed fracture (principal); F32.9 Major depressive disorder, single episode, unspecified; I42.0 Dilated cardiomyopathy; Z82.49 Family history of ischemic heart disease and other diseases of the circulatory system; Z91.048 Other nonmedicinal substance allergy status; Z79.82 Long term (current) use of aspirin; Z79.52 Long term (current) use of systemic steroids; Z90.710 Acquired absence of both cervix and uterus; Z95.5 Presence of coronary angioplasty implant and graft; Z95.810 Presence of automatic (implantable) cardiac defibrillator; Z85.3 Personal history of malignant neoplasm of breast; Z85.41 Personal history of malignant neoplasm of cervix uteri; X50.0XXA Overexertion from strenuous movement or load, initial encounter
CPT/HCPCS: 96374; 96375; 96376

== ENCOUNTER 2017-04-29 10:37 | Outpatient (CLI) | payer MEDICARE ==
[~2017-04-29] VITALS: Ht 162.6 cm; Wt 78.5 kg
[~2017-04-29 10:37] MED LIST changes: +HYDR-757 PO
[2017-04-29 10:55] VITALS: BP 105/57
[2017-04-29] MEDS ORDERED: NF-AROM25 PO (11:19)
[2017-04-29] MEDS ORDERED: ASPI-999 PO (11:19)
[2017-04-29] MEDS ORDERED: ATOR20TA66 PO (11:19)
[2017-04-29] MEDS ORDERED: LISI10TA2 PO (11:19)
[2017-04-29] MEDS ORDERED: CHOL20002 PO (11:19)
[2017-04-29] MEDS ORDERED: CALC-6 PO (11:19)
[2017-04-29] MEDS ORDERED: MULT-228 PO (11:19)
[2017-04-29] MEDS ORDERED: CLOP75TA69 PO (11:19)
[2017-04-29] MEDS ORDERED: FURO40TA4 PO (11:19)
[2017-04-29] MEDS ORDERED: SPIR25TA3 PO (11:19)
[2017-04-29] MEDS ORDERED: CARV12.53 PO (11:19)
== END 2017-04-29 12:48 | disposition home or self-care (01) ==
LOC: PREOP 10:37
PROVIDERS: ATTEND Orthopaedic Surgery
DX: Z01.818 Encounter for other preprocedural examination (principal); Z11.2 Encounter for screening for other bacterial diseases; S82.842A Displaced bimalleolar fracture of left lower leg, initial encounter for closed fracture; W19.XXXA Unspecified fall, initial encounter; Y92.017 Garden or yard in single-family (private) house as the place of occurrence of the external cause
CPT/HCPCS: 87081

== ENCOUNTER 2017-05-01 09:58 | Day surgery (SDC) | payer MEDICARE ==
[~2017-05-01] VITALS: Ht 162.6 cm; Wt 78.5 kg
[~2017-05-01 09:58] MED LIST changes: +ASPI-999 PO; +ATOR20TA66 PO; +CALC-6 PO; +CHOL20002 PO; +CLOP75TA69 PO; +MULT-228 PO; +NF-AROM25 PO; +SPIR25TA3 PO
[2017-05-01] MEDS ORDERED: NS (IVPB) 100 ML ONE (10:16)
[2017-05-01] MEDS ORDERED: ceFAZolin 1,000 MG (ANCEF) VIAL ONE (10:16)
[2017-05-01] MEDS ORDERED: ONDANSETRON 4 MG/2 ML (SDV) Z0FRAN ONE ×2 (10:17→11:07)
[2017-05-01] MEDS ORDERED: FAMOTIDINE 20MG/2ML IV (PEPCID) ONE (10:17)
[2017-05-01] MEDS ORDERED: SCOPOLAMINE 1.5 MG (TRANSDERM-SCOP) PATCH ONE (10:17)
[2017-05-01] MEDS ORDERED: ceFAZolin 1 GM/NS 100 ML IVPB IV ONE ×2 (10:30)
[2017-05-01] MEDS ORDERED: LACTATED RINGERS 1,000 ML IV PRN (10:39)
[2017-05-01] MEDS ORDERED: BUPIVACAINE 0.5% 30 ML (SENSORCAINE) VIAL ONE (10:42)
[2017-05-01] MEDS ORDERED: ceFAZolin INJECTION 1,000 MG in NS (IVPB) 100 ML IV ONE (10:45)
[2017-05-01 10:51] VITALS: BP 115/53
[2017-05-01] MEDS ORDERED: MIDAZOLAM 2 MG/2 ML (VERSED) VIAL ONE (11:07)
[2017-05-01] MEDS ORDERED: SEVOFLURANE (ULTANE) 15 ML INHAL SOLN ONE ×3 (11:07→12:45)
[2017-05-01] MEDS ORDERED: fentaNYL INJECTION 100 MCG/2 ML AMP ONE (11:07)
[2017-05-01] MEDS ORDERED: proPOfol 200 MG/20 ML (DIPRIVAN) VIAL IV ONE (11:07)
[2017-05-01] MEDS ORDERED: LIDOCAINE PF 2% 5 ML (XYLOCAINE) VIAL ONE (11:07)
--- NOTE | 2017-05-01 11:35 | Progress Note-Pre Operative ---
Pre-Operative Progress Note H&P Reviewed The H&P was reviewed, patient examined and no changes noted. Date Seen by Provider: May 01, 2017 Time Seen by Provider: 11:34 Date H&P Reviewed: May 01, 2017 Time H&P Reviewed: 11:34 Pre-Operative Diagnosis: left displaced, closed medial and lateral malleolus fractures GILBERTO ANDERSON MD May 01, 2017 11:34
--- NOTE | 2017-05-01 11:36 | Progress Note-Post Operative ---
Post-Operative Progess Note Surgeon (s)/Broach Grinder (s) Surgeon GILBERTO ANDERSON MD Broach Grinder: new matos Pre-Operative Diagnosis left displaced, closed medial and lateral malleolus fractures Post-Operative Diagnosis left displaced, closed medial and lateral malleolus fractures Procedure & Operative Findings Date of Procedure 05/01/17 Procedure Performed/Findings ORIF of the left medial and lateral malleolus Anesthesia Type GETA Estimated Blood Loss Estimated blood loss (mL): 50ml Specimens/Packing Specimens Removed none Packing: none GILBERTO ANDERSON MD May 01, 2017 11:36
[2017-05-01] MEDS ORDERED: oxyCODONE/APAP 5/325MG (PERCOCET 5) TABLET PO PRN (11:45)
[2017-05-01] MEDS ORDERED: DEXAMETHASONE 10 MG/ML (DECADRON) 1 ML VIAL ONE (12:07)
[2017-05-01] MEDS ORDERED: morphine INJ 10 MG/ML 1ML (SYR OR VIAL) ONE (12:43)
[2017-05-01] MEDS: morphine INJ 10 MG/ML 1ML (SYR OR VIAL) IVP PRN ×2 (13:08→13:13)
[2017-05-01] MEDS ORDERED: MEPERIDINE (DEMEROL) INJ 50 MG/ML IVP PRN (13:15)
[2017-05-01] MEDS ORDERED: ONDANSETRON 4 MG/2 ML (SDV) Z0FRAN IVP PRN (13:15)
[2017-05-01] MEDS: HYDROmorphone (DILAUDID) 2 MG/ML VIAL IVP PRN ×2 (13:28→13:38)
--- NOTE | 2017-05-01 13:50 | Diagnostic Imaging Report ---
INDICATION: Fluoroscopy for left ankle ORIF. Fluoroscopy was provided in the OR for left ankle ORIF. 14 seconds of fluoroscopy was utilized. Images demonstrate a lateral plate and numerous screws transfixing the distal fibular fracture. There are 2 partially threaded screws transfixing the medial malleolus. Ankle alignment is normal. Ankle mortise is well maintained. The talar dome is smooth. IMPRESSION: Fluoroscopy for left ankle ORIF. Dictated by: Dictated on workstation # [id number]
[2017-05-01 14:10] VITALS: BP 135/68
--- NOTE | 2017-05-01 14:38 | Anesthesia-General Post-Op ---
General Patient Condition Mental Status/LOC: Same as Preop Cardiovascular: Satisfactory Nausea/Vomiting: Absent Respiratory: Satisfactory Pain: Controlled Complications: Absent Post Op Complications Complications None Follow Up Care/Instructions Patient Instructions None needed. Anesthesia/Patient Condition Patient Condition Patient is doing well, no complaints, stable vital signs, no apparent adverse anesthesia problems. No complications reported per nursing. OLR CARVAJAL CRNA May 01, 2017 14:37
[2017-05-01 14:40] VITALS: BP 122/63
[2017-05-01 15:10] VITALS: BP 122/56
[2017-05-01 15:25] VITALS: BP 122/56
[2017-05-01] MEDS ORDERED: OXYC-471 PO (15:51)
--- NOTE | 2017-05-01 20:48 | OPERATIVE REPORT ---
DATE OF SERVICE: 05/01/2017 PREOPERATIVE DIAGNOSES: 1. Left closed displaced medial malleolus fracture. 2. Left closed displaced lateral malleolus fracture. POSTOPERATIVE DIAGNOSES: 1. Left closed displaced medial malleolus fracture. 2. Left closed displaced lateral malleolus fracture. PROCEDURES: 1. Open reduction and internal fixation of the left medial malleolus. 2. Open reduction and internal fixation of the left lateral malleolus. SURGEON: Krzysztof Izaguirre MD. SOUP PERSON: LORENE Kaur, who assisted throughout the procedure and closed the incisions. ANESTHESIA: General endotracheal by Shahzad Bob CRNA. TOURNIQUET TIME: Approximately 50 minutes at 300 mmHg. ESTIMATED BLOOD LOSS: 50 mL. DRAINS: None. COMPLICATIONS: None. MATERIALS: Synthes small fragment system. The patient was transferred to recovery room awake in stable condition. POSTOPERATIVE PLAN: To touch weightbearing, left lower extremity. STATEMENT OF MEDICAL NECESSITY: The patient is a 56-year-old female who 6 days ago sustained an injury to her left ankle. She was found to have a displaced bimalleolar ankle fracture, was placed in a splint and presented to the office on Saturday. It is recommended the patient undergo operative fixation due to the unstable nature of her fracture. DESCRIPTION OF PROCEDURE: After risks and benefits of procedure were discussed and questions were answered and informed consent was signed and placed on chart, the operative site was confirmed in the preoperative holding area initialed by the surgeon. The patient was then transported to the operating room and after adequate levels of general endotracheal anesthetic were obtained, timeout was called confirmed the operative site. The left lower extremity was prepped and draped in the usual sterile fashion with the leg elevated and the knee flexed. Tourniquet inflated to 300 mmHg. Standard lateral approach was made to the distal fibula. The underlying soft tissues were carefully dissected. The fracture site was identified and anatomically reduced. A 3.5 cortical lag screw was placed perpendicular to the fracture with excellent purchase obtained. A 6-hole one third tubular was then placed. One third tubular plate was placed with three cortical screws proximal to the fracture site. One cortical screw and two cancellous screws distal to the fracture site all had excellent purchase. Fluoroscopy in AP and lateral planes revealed anatomic reduction of the fracture with well-placed hardware. The wound was then copiously irrigated and packed. A longitudinal incision was then made over the medial malleolus. The underlying soft tissues were carefully dissected. The fracture site was identified and reduced anatomically. Two 4.0 partially threaded cancellous screws were placed, one 38 mm in length and one 45 mm with fluoroscopy in the AP and lateral planes revealed excellent reduction of the fracture with well-placed hardware. The joint was inspected anteriorly with no hardware penetration and no articular cartilage damage. The wounds were copiously irrigated. A 0 Vicryl was used to reapproximate the deep subcutaneous layer on the lateral side and 2-0 Vicryl was used to reapproximate the superficial subcutaneous layer on both the medial and lateral sides. A 4-0 nylon was used to reapproximate the skin and vertical mattress interrupted fashion. The incisions were infiltrated with plain Marcaine. A soft dressing and boot were applied. The tourniquet was deflated. The patient was transported to the recovery room, awake in stable condition. Job ID: [id number] DocumentID: [id number] Dictated Date: 05/01/2017 12:58:29 Side Splitter Date: 05/01/2017 20:47:35 Dictated By: KRZYSZTOF IZAGUIRRE MD
--- NOTE | 2017-05-03 08:13 | HISTORY AND PHYSICAL ---
DATE OF ADMISSION: 05/01/2017. REASON FOR ADMISSION: This will be for outpatient surgery on 05/01/2017 for open reduction and internal fixation of left ankle. HISTORY OF PRESENT ILLNESS: The patient is a 56-year-old female, who injured her left ankle on 04/25 when she stepped awkwardly rolling it. She is found to have a displaced bimalleolar ankle fracture. She presented to the office on 04/29/2017. She denies paresthesias. She reports no prior history of ankle problems. REVIEW OF SYSTEMS: No chest pain, no shortness of breath and no dysuria. PAST MEDICAL HISTORY: Cardiomyopathy, hypertension, heart attack, lymphedema, and breast cancer. PAST SURGICAL HISTORY: Mastectomy, hysterectomy, pacemaker placement, defibrillator, coronary stent placement. FAMILY HISTORY: Significant for prostate cancer. PRIMARY CARE PROVIDER: Dr. Wu. HEAT TREATER HEAD: Dr. Gerardo. SOCIAL HISTORY: The patient denies alcohol and tobacco use. RADIOGRAPHS: Reveal displaced bimalleolar ankle fracture with no widening of the syndesmosis. MEDICATIONS: Aspirin, lisinopril, Coreg, furosemide, spironolactone, Lipitor, Plavix, Aromasin and vitamins. PHYSICAL EXAMINATION: GENERAL: The patient is well developed, well nourished, in no acute distress. HEENT: Normocephalic, atraumatic. Pupils are equal, round and reactive to light. Oropharynx is clear. NECK: Supple, no lymphadenopathy. LUNGS: Clear to auscultation bilaterally. HEART: Regular rate and rhythm. ABDOMEN: Soft, nontender, nondistended. EXTREMITIES: Left ankle demonstrates moderate edema. No skin lesions noted. She has intact dorsiflexion and plantarflexion of the toes. Pulses are symmetric. IMPRESSION: Displaced bimalleolar ankle fracture of left ankle. PLAN: Open reduction and internal fixation of the left ankle. We discussed risks, benefits options, ramifications and recovery. She understands and wishes to proceed. Job ID: [id number] DocumentID: [id number] Dictated Date: 04/29/2017 10:01:21 Field Reimbursement Manager Date: 04/29/2017 10:27:29 Dictated By: GILBERTO ANDERSON MD <Dictated by GILBERTO ANDERSON MD> <Electronically signed by GILBERTO ANDERSON MD> 04/30/17 [id number]
== END 2017-05-01 15:25 | disposition home or self-care (01) ==
LOC: SDC 09:58
PROVIDERS: ATTEND Orthopaedic Surgery
DX: S82.842A Displaced bimalleolar fracture of left lower leg, initial encounter for closed fracture (principal); I10 Essential (primary) hypertension; I25.10 Atherosclerotic heart disease of native coronary artery without angina pectoris; E78.5 Hyperlipidemia, unspecified; Z95.5 Presence of coronary angioplasty implant and graft; Z79.899 Other long term (current) drug therapy; Z79.82 Long term (current) use of aspirin; W19.XXXA Unspecified fall, initial encounter; Y92.017 Garden or yard in single-family (private) house as the place of occurrence of the external cause

== ENCOUNTER → 2018-01-28 | Outpatient (CLI) | payer MEDICARE ==
[~2018-01-28] MED LIST changes: +HYDR-4226 PO; -HYDR-757 PO; +OXYC-471 PO; -SPIR25TA3 PO; +SPIR25TA5 PO
[2018-01-28 10:46] LABS: HEMATOCRIT 37 % (35-52); HEMOGLOBIN 12.4 G/DL (11.5-16.0); RED BLOOD COUNT 3.84 10^6/uL (4.35-5.85)
[2018-01-28 10:47] LABS: BASOPHILS # (AUTO) 0.1 10^3/uL (0.0-0.1); BASOPHILS % (AUTO) 1 % (0-10); EOSINOPHILS # (AUTO) 0.3 10^3/uL (0.0-0.3); EOSINOPHILS % (AUTO) 4 % (0-10); LYMPHOCYTES # (AUTO) 1.9 X 10^3 (1.0-4.0); LYMPHOCYTES % (AUTO) 26 % (12-44); MEAN CORPUSCULAR HEMOGLOBIN 32 PG (25-34); MEAN CORPUSCULAR HGB CONC 34 G/DL (32-36); MEAN CORPUSCULAR VOLUME 96 FL (80-99); MEAN PLATELET VOLUME 10.9 FL (7.4-10.4); MONOCYTES # (AUTO) 0.6 X 10^3 (0.0-1.0); MONOCYTES % (AUTO) 9 % (0-12); NEUTROPHILS # (AUTO) 4.2 X 10^3 (1.8-7.8); NEUTROPHILS % (AUTO) 60 % (42-75); PLATELET COUNT 181 10^3/uL (130-400); RED CELL DISTRIBUTION WIDTH 12.2 % (10.0-14.5)
[2018-01-28 11:05] LABS: ALANINE AMINOTRANSFERASE 22 U/L (0-55); ALBUMIN 4.2 GM/DL (3.2-4.5); ALKALINE PHOSPHATASE 90 U/L (40-136); BILIRUBIN,TOTAL 0.4 MG/DL (0.1-1.0); BUN/CREATININE RATIO 31; CALCIUM 9.8 MG/DL (8.5-10.1); CARBON DIOXIDE 22 MMOL/L (21-32); CHLORIDE 104 MMOL/L (98-107); CREATININE SERUM 0.78 MG/DL (0.60-1.30); GFR ESTIMATED > 60; GLUCOSE 125 MG/DL (70-105); POTASSIUM 4.6 MMOL/L (3.6-5.0); SODIUM 137 MMOL/L (135-145); TOTAL PROTEIN 7.1 GM/DL (6.4-8.2)
== END ==
LOC: ONC 10:23
PROVIDERS: ATTEND Internal Medicine Hematology & Oncology
DX: Z08 Encounter for follow-up examination after completed treatment for malignant neoplasm (principal); Z85.3 Personal history of malignant neoplasm of breast; Z85.830 Personal history of malignant neoplasm of bone; I42.9 Cardiomyopathy, unspecified; I25.10 Atherosclerotic heart disease of native coronary artery without angina pectoris; E04.2 Nontoxic multinodular goiter; Z90.11 Acquired absence of right breast and nipple; Z90.710 Acquired absence of both cervix and uterus; Z98.84 Bariatric surgery status; Z92.21 Personal history of antineoplastic chemotherapy; Z79.82 Long term (current) use of aspirin; Z79.899 Other long term (current) drug therapy
CPT/HCPCS: 36415; 80053; 85025; 99213

== ENCOUNTER → 2018-02-26 | Outpatient (CLI) | payer MEDICARE ==
--- NOTE | 2018-02-26 13:26 | Diagnostic Imaging Report ---
PROCEDURE: US Thyroid. TECHNIQUE: Multiple real-time grayscale images were obtained of the thyroid in various projections. INDICATION: Thyroid nodules. FINDINGS: The previous thyroid ultrasound exam performed on 01/25/2017 noted solid nodules involving both lobes of the thyroid. These nodules appeared similar to the prior thyroid ultrasound exam of 01/31/2016 with the exception of a nodule in the inferior pole of the right lobe which did seem slightly larger than noted on the prior exam. On this study, the nodules in each lobe are again identified. The largest nodule in the right lobe now measures 1.6 x 1.3 x 1.07 cm as opposed to 1.7 x 1.0 x 1.3 cm on the prior exam. The nodule in the inferior pole of the right lobe measuring 1.4 x 1.0 x 1.3 cm previously is now estimated to be 1.4 x 1.2 x 1.2 cm. There are three nodules in the left lobe. None of these measure greater than a centimeter in size. The largest of these nodules is in the inferior pole and measures approximately 0.9 x 0.6 x 0.4 cm. On the prior exam, this measured 0.7 x 0.4 x 0.6 cm. The right lobe of the thyroid is enlarged but similar in size when compared to the prior study. The right lobe measures 5.6 x 2.0 x 1.9 cm as opposed to 5.6 x 2.2 x 1.9 cm previously (normal gland size 4-5 x 2 x 2 cm or less). The left lobe measures 4.8 x 1.3 x 1.5 cm. IMPRESSION: The multiple nodules involving both lobes of the thyroid do not seem to have changed significantly since the prior exam. Most likely, the appearance of the thyroid gland is related to multinodular goiter. Clinical followup is recommended. Dictated by: Dictated on workstation # [id number]
== END ==
LOC: RAD 11:20
PROVIDERS: ATTEND Otolaryngology Otolaryngology/Facial Plastic Surgery
DX: E04.2 Nontoxic multinodular goiter (principal)
CPT/HCPCS: 76536

== ENCOUNTER → 2019-01-27 | Outpatient (CLI) | payer MEDICARE | LOC: ONC 10:07 | PROVIDERS: ATTEND Internal Medicine Hematology & Oncology | DX: Z08 Encounter for follow-up examination after completed treatment for malignant neoplasm (principal); Z85.3 Personal history of malignant neoplasm of breast; Z85.830 Personal history of malignant neoplasm of bone; I42.9 Cardiomyopathy, unspecified; I25.10 Atherosclerotic heart disease of native coronary artery without angina pectoris; E04.2 Nontoxic multinodular goiter; Z90.11 Acquired absence of right breast and nipple; Z90.710 Acquired absence of both cervix and uterus; Z98.84 Bariatric surgery status; Z92.21 Personal history of antineoplastic chemotherapy; Z79.82 Long term (current) use of aspirin; Z79.899 Other long term (current) drug therapy | CPT/HCPCS: 99213 ==

== ENCOUNTER → 2019-03-23 | Outpatient (CLI) | payer MEDICARE ==
--- NOTE | 2019-03-23 11:47 | Diagnostic Imaging Report ---
PROCEDURE: US Thyroid. TECHNIQUE: Multiple real-time grayscale images were obtained of the thyroid in various projections. INDICATION: Multinodular goiter. COMPARISON: Correlation is made with prior thyroid ultrasound from 02/26/2018. FINDINGS: The right lobe of thyroid measures 5.3 x 2.0 x 1.8 cm and the left lobe measures 4.8 x 0.9 x 1.5 cm. Isthmus is 2 mm in thickness. Multiple nodules are again noted in both lobes of the thyroid gland. Mixed solid and cystic nodule lower pole right lobe measures 1.1 x 1.0 x 1.0 cm. This compares with 1.4 x 1.2 x 1.2 cm on prior. A nodule in mid right lobe measures 1.7 x 1.0 x 1.1 cm compared with 1.6 x 1.3 x 1.0 cm on prior. There are several subcentimeter hypoechoic nodules in the left lobe, stable. No new mass is detected. IMPRESSION: Overall stable multinodular thyroid when compared with prior exam from one year earlier. Dictated by: Dictated on workstation # [id number]
== END ==
LOC: RAD 07:54
PROVIDERS: ATTEND Otolaryngology Otolaryngology/Facial Plastic Surgery
DX: E04.2 Nontoxic multinodular goiter (principal)
CPT/HCPCS: 76536

== ENCOUNTER → 2019-12-24 | Outpatient (CLI) | payer MEDICARE ==
[~2019-12-24] MED LIST changes: -CALC-6 PO; +CALC1TAB84 PO
== END ==
LOC: CARD 09:00
PROVIDERS: ATTEND Nurse Practitioner Family
DX: I25.10 Atherosclerotic heart disease of native coronary artery without angina pectoris (principal); I42.0 Dilated cardiomyopathy; I08.0 Rheumatic disorders of both mitral and aortic valves; I65.23 Occlusion and stenosis of bilateral carotid arteries; I50.32 Chronic diastolic (congestive) heart failure; E78.49 Other hyperlipidemia
CPT/HCPCS: 93306

== ENCOUNTER → 2020-03-14 | Outpatient (CLI) | payer MEDICARE ==
--- NOTE | 2020-03-14 10:37 | Diagnostic Imaging Report ---
PROCEDURE: US Thyroid. TECHNIQUE: Multiple real-time grayscale images were obtained of the thyroid in various projections. INDICATION: Multinodular goiter, follow-up. COMPARISON: Correlation is made with prior ultrasound from 03/23/2019. FINDINGS: Right lobe of thyroid measures 5.3 x 1.6 x 2.5 cm and the left lobe measures 4.8 x 1.3 x 1.3 cm. The isthmus is 2 mm in thickness. Multiple thyroid nodules are again noted. There are numerous subcentimeter thyroid nodules throughout the left lobe, similar to prior exam. Nodule in the mid right lobe measures 1.6 x 1.0 x 1.4 cm compared with 1.7 x 1.0 x 1.1 cm. Nodule in lower pole measures 1.4 x 1.2 x 1.4 cm compared with 1.1 x 1.0 x 1.0 cm. Lower pole nodule is mixed solid and cystic. No microcalcifications are seen. IMPRESSION: Multinodular thyroid. Overall appearance appears very similar to exam from one year earlier. The lower pole nodule on the right is measuring slightly larger, however this might be owing to slight differences in measurement technique. Continued follow-up is recommended. Dictated by: Dictated on workstation # [id number]
== END ==
LOC: RAD 08:54
PROVIDERS: ATTEND Otolaryngology Otolaryngology/Facial Plastic Surgery
DX: E04.2 Nontoxic multinodular goiter (principal)
CPT/HCPCS: 76536

== ENCOUNTER → 2020-03-29 | Outpatient (CLI) | payer MEDICARE ==
[~2020-03-29] MED LIST changes: +LISI10TA25 PO; -OXYC-471 PO; +OXYC1TAB11 PO
[2020-03-29 09:41] LABS: BASOPHILS # (AUTO) 0.1 10^3/uL (0.0-0.1); BASOPHILS % (AUTO) 1 % (0-10); EOSINOPHILS # (AUTO) 0.4 10^3/uL (0.0-0.3); EOSINOPHILS % (AUTO) 5 % (0-10); HEMATOCRIT 38 % (35-52); HEMOGLOBIN 12.8 g/dL (11.5-16.0); LYMPHOCYTES # (AUTO) 1.7 10^3/uL (1.0-4.0); LYMPHOCYTES % (AUTO) 24 % (12-44); MEAN CORPUSCULAR HEMOGLOBIN 32 pg (25-34); MEAN CORPUSCULAR HGB CONC 34 g/dL (32-36); MEAN CORPUSCULAR VOLUME 96 fL (80-99); MEAN PLATELET VOLUME 10.5 fL (9.0-12.2); MONOCYTES # (AUTO) 0.7 10^3/uL (0.0-1.0); MONOCYTES % (AUTO) 10 % (0-12); NEUTROPHILS # (AUTO) 4.1 10^3/uL (1.8-7.8); NEUTROPHILS % (AUTO) 60 % (42-75); PLATELET COUNT 202 10^3/uL (130-400); WHITE BLOOD COUNT 6.9 10^3/uL (4.3-11.0)
[2020-03-29 10:09] LABS: ALANINE AMINOTRANSFERASE 21 U/L (0-55); ALBUMIN 4.3 GM/DL (3.2-4.5); ALKALINE PHOSPHATASE 96 U/L (40-136); BILIRUBIN,TOTAL 0.4 MG/DL (0.1-1.0); BUN/CREATININE RATIO 25; CALCIUM 9.6 MG/DL (8.5-10.1); CARBON DIOXIDE 25 MMOL/L (21-32); CHLORIDE 102 MMOL/L (98-107); CREATININE SERUM 0.85 MG/DL (0.60-1.30); GFR ESTIMATED > 60; GLUCOSE 83 MG/DL (70-105); POTASSIUM 4.1 MMOL/L (3.6-5.0); SODIUM 137 MMOL/L (135-145); TOTAL PROTEIN 7.3 GM/DL (6.4-8.2)
== END ==
LOC: ONC 09:23
PROVIDERS: ATTEND Internal Medicine Hematology & Oncology
DX: C50.111 Malignant neoplasm of central portion of right female breast (principal); E04.2 Nontoxic multinodular goiter; I42.0 Dilated cardiomyopathy; R63.4 Abnormal weight loss; I50.9 Heart failure, unspecified; I25.10 Atherosclerotic heart disease of native coronary artery without angina pectoris; E78.00 Pure hypercholesterolemia, unspecified; R53.83 Other fatigue; Z85.118 Personal history of other malignant neoplasm of bronchus and lung; Z90.722 Acquired absence of ovaries, bilateral; Z92.21 Personal history of antineoplastic chemotherapy; Z95.0 Presence of cardiac pacemaker
CPT/HCPCS: 80053; 84443; 85025; G0463; 99213

== ENCOUNTER → 2020-07-19 | Outpatient (CLI) | payer MEDICARE ==
[~2020-07-19] VITALS: Ht 162 cm; Wt 86.0 kg
[~2020-07-19] MED LIST changes: +CATHETER FLUSH 10 ML SYR IV PRN; +REGADENOSON 0.4 MG/5 ML SYR (LEXISCAN) IV ONE
[2020-07-19 09:17] VITALS: BP 168/95
--- NOTE | 2020-07-19 15:15 | STRESS TEST ---
DATE OF SERVICE: 07/19/2020 RESTING AND POST REGADENOSON TECHNETIUM-99M TETROFOSMIN SPECT CT IMAGING ORDERING PHYSICIAN: Shruti Higgins APRN PRIMARY PHYSICIAN: Dr. Wu. OTHER PHYSICIAN: Dr. Arevalo. CLINICAL DIAGNOSES: Cardiomyopathy, coronary artery disease. Baseline images were carried out after injection of 10.71 mCi of technetium-99m Tetrofosmin. This was followed by 0.4 mg regadenoson and 29.9 mCi of technetium-99m Tetrofosmin for stress imaging. The electrocardiogram showed sinus rhythm with left bundle branch block at baseline. It did not change significantly with regadenoson infusion. The patient noted mild shortness of breath following regadenoson infusion, which resolved in a few minutes. Review of images at rest and following stress indicates a somewhat diminished count uptake at the apex, both at rest and following regadenoson infusion. However, gated images show no specific regional wall motion abnormality. There appears to be global hypokinesis of the left ventricle. Left ventricular ejection fraction is calculated to be 32%. The somewhat diminished count uptake at the apex appears to be due to apical thinning. Left ventricular end diastolic volume is 111 mL. TID is absent (1.04) CONCLUSIONS: 1. No evidence of significant myocardial ischemia or infarction on this study. 2. Impairment of global left ventricular systolic function with ejection fraction 32%. 3. Mild cardiomegaly. Job ID: [id number] DocumentID: [id number] Dictated Date: 07/19/2020 15:03:03 Director Of Hospitality Date: 07/19/2020 15:14:44 Dictated By: MELISSA AREVALO MD, MA, FACP, FACC,
== END ==
LOC: CARD 07:41
PROVIDERS: ATTEND Nurse Practitioner Family
DX: I25.10 Atherosclerotic heart disease of native coronary artery without angina pectoris (principal); I42.9 Cardiomyopathy, unspecified
CPT/HCPCS: 78452; 93017; A9502

== ENCOUNTER → 2021-01-13 | Outpatient (CLI) | payer MEDICARE ==
[~2021-01-13] MED LIST changes: -CATHETER FLUSH 10 ML SYR IV PRN; -REGADENOSON 0.4 MG/5 ML SYR (LEXISCAN) IV ONE
== END ==
LOC: CARD 10:29
PROVIDERS: ATTEND Nurse Practitioner Family
DX: I08.0 Rheumatic disorders of both mitral and aortic valves (principal)
CPT/HCPCS: 93306

== ENCOUNTER 2021-03-06 09:44 | Outpatient (RCR) | payer MEDICARE ==
[2021-03-06 09:54] LABS: BASOPHILS # (AUTO) 0.1 10^3/uL (0.0-0.1); BASOPHILS % (AUTO) 1 % (0-10); EOSINOPHILS # (AUTO) 0.2 10^3/uL (0.0-0.3); EOSINOPHILS % (AUTO) 2 % (0-10); HEMATOCRIT 40 % (35-52); HEMOGLOBIN 13.3 g/dL (11.5-16.0); LYMPHOCYTES # (AUTO) 1.8 10^3/uL (1.0-4.0); LYMPHOCYTES % (AUTO) 22 % (12-44); MEAN CORPUSCULAR HEMOGLOBIN 33 pg (25-34); MEAN CORPUSCULAR HGB CONC 34 g/dL (32-36); MEAN CORPUSCULAR VOLUME 97 fL (80-99); MONOCYTES # (AUTO) 0.8 10^3/uL (0.0-1.0); MONOCYTES % (AUTO) 10 % (0-12); NEUTROPHILS # (AUTO) 5.4 10^3/uL (1.8-7.8); NEUTROPHILS % (AUTO) 65 % (42-75); PLATELET COUNT 223 10^3/uL (130-400); WHITE BLOOD COUNT 8.3 10^3/uL (4.3-11.0)
[2021-03-06 10:17] LABS: ALANINE AMINOTRANSFERASE 38 U/L (0-55); ALBUMIN 4.6 GM/DL (3.2-4.5); ALKALINE PHOSPHATASE 113 U/L (40-136); BILIRUBIN,TOTAL 0.5 MG/DL (0.1-1.0); BUN/CREATININE RATIO 23; CALCIUM 10.1 MG/DL (8.5-10.1); CARBON DIOXIDE 25 MMOL/L (21-32); CHLORIDE 103 MMOL/L (98-107); CREATININE SERUM 0.79 MG/DL (0.60-1.30); GFR ESTIMATED 74; GLUCOSE 94 MG/DL (70-105); POTASSIUM 4.1 MMOL/L (3.6-5.0); SODIUM 140 MMOL/L (135-145); TOTAL PROTEIN 7.9 GM/DL (6.4-8.2)
== END 2021-03-27 | disposition home or self-care (01) ==
LOC: ONC 09:44
PROVIDERS: ATTEND Internal Medicine Hematology & Oncology
DX: D05.11 Intraductal carcinoma in situ of right breast (principal); I25.10 Atherosclerotic heart disease of native coronary artery without angina pectoris; I42.0 Dilated cardiomyopathy; I50.9 Heart failure, unspecified; E78.00 Pure hypercholesterolemia, unspecified; E78.5 Hyperlipidemia, unspecified; E66.9 Obesity, unspecified; M17.0 Bilateral primary osteoarthritis of knee; E04.2 Nontoxic multinodular goiter; Z90.13 Acquired absence of bilateral breasts and nipples; Z90.710 Acquired absence of both cervix and uterus; Z90.722 Acquired absence of ovaries, bilateral; Z95.0 Presence of cardiac pacemaker; Z85.831 Personal history of malignant neoplasm of soft tissue; Z85.118 Personal history of other malignant neoplasm of bronchus and lung
CPT/HCPCS: 80053; 85025; G0463; 99213

== ENCOUNTER 2021-10-18 05:28 | Outpatient (CLI) | payer MEDICARE ==
[~2021-10-18] VITALS: Ht 162 cm; Wt 90.8 kg
[2021-10-20] MEDS ORDERED: CARV6.252 PO (10:44)
[2021-10-20] MEDS ORDERED: ATOR20TA66 PO (10:44)
== END 2021-10-20 11:11 ==
LOC: PREOP 05:28
PROVIDERS: ATTEND Orthopaedic Surgery
DX: Z01.818 Encounter for other preprocedural examination (principal); S83.242A Other tear of medial meniscus, current injury, left knee, initial encounter

== ENCOUNTER → 2022-12-07 | Outpatient (CLI) | payer MEDICARE ==
[~2022-12-07] MED LIST changes: +CARV6.252 PO; +CLOP-31 PO; -CLOP75TA69 PO
--- NOTE | 2022-12-07 17:43 | Diagnostic Imaging Report ---
Indication: Female right breast cancer of unspecified site for staging. She has complaints of right chest wall pain of one month's duration. The previous bone scan of greater than 10 years ago is not available for comparison. Patient received 27.1 mCi technetium 99 MDP and after 4 hours whole-body planar imaging performed. Findings: There is abnormal uptake associated with the anterolateral margin of the shaft of the right femur which may be postsurgical but correlate clinically. If is no benign clinical explanation for that uptake, femoral radiographs would be recommended. Sternomanubrial and rib uptake however appeared normal. No suspicious chest wall accumulation. The cervical, thoracic and lumbar spine unremarkable. Bony pelvis unremarkable. Otherwise, there is some mild degenerative uptake about the long bones joints. Calvarium normal. Soft tissue uptake and excretion of radiopharmacy by urinary tracts, physiologic. Impression: 1. No suspicious chest wall uptake. No findings to explain the presenting complaint of pain and no convincing evidence for metastatic disease. 2. Likely post-interventional or remote posttraumatic uptake in the right femur but correlate clinically and if warranted plain films of the right femur may be of utility. Dictated by: Dictated on workstation # [id number]
== END ==
LOC: CARD 08:13
PROVIDERS: ATTEND Internal Medicine Hematology & Oncology
DX: C50.111 Malignant neoplasm of central portion of right female breast (principal); C43.60 Malignant melanoma of unspecified upper limb, including shoulder
CPT/HCPCS: 78306; A9503